=== PATIENT | male | born 1945 | race Caucasian/White ===

== ENCOUNTER 2016-04-11 07:05 | Day surgery (SDC) | payer OTHER ==
[2016-04-11 07:45] VITALS: BMI 27.5
[2016-04-11] MEDS ORDERED: LIDOCAINE HCL/PF 1% SDV 5ML VIAL ONE (07:58)
[2016-04-11] MEDS ORDERED: PROPOFOL 20 ML ONE ×4 (07:59)
[2016-04-11 08:54] VITALS: TEMP 98
[2016-04-11 10:03] VITALS: BP 112/56; PULSE 58
--- NOTE | 2016-04-12 10:35 | PATH ---
Surgical Pathology Report Patient Name: IGGY BERGERON [facility]. Rec. #: [id number] /Age/Gender: 1945 (Age: 70) / M Account: [id number] Location: U-ENDOSCOPY Taken: 04/11/2016 Received: 04/11/2016 Reported: 04/12/2016 Physicians: Anabel Cardoza M.D. Specimen(s) Received A: POLYP CECUM B: POLYPS RIGHT COLON C: POLYP DISTAL TRANSVERSE COLON Clinical History Surveillance adenoma, rectal bleeding, constipation Colon polyps, diverticulosis Final Diagnosis A. COLON, CECUM, BIOPSY: TUBULAR ADENOMA. B. COLON, RIGHT, BIOPSY: TUBULAR ADENOMA. C. COLON, DISTAL TRANSVERSE, BIOPSY: HYPERPLASTIC POLYP. Electronically Signed Remington Villa M.D. Gross Description A. Received in formalin, labeled "polyp cecum" is a [place], irregular portion of soft tissue measuring 0.5 cm. in greatest dimension. The specimen is submitted in toto in one cassette. B. Received in formalin, labeled "polyps right colon" is a [place], irregular portion of soft tissue measuring 0.6 cm. in greatest dimension. The specimen is submitted in toto in one cassette. C. Received in formalin, labeled "polyp distal transverse colon" are 3 [place], irregular portions of soft tissue ranging from 0.2-0.4 cm. in greatest dimension. The specimens are submitted in toto in one cassette. 04/11/2016 saudi04/11/2016
== END 2016-04-11 10:00 | disposition home or self-care (01) ==
LOC: JASU-ENDO 07:05
PROVIDERS: ATTEND Internal Medicine Gastroenterology
PROC: 0DBL8ZX Excision of Transverse Colon, Via Natural or Artificial Opening Endoscopic, Diagnostic (ICD-10-PCS; principal; 2016-04-11 08:00)
DX: Z86.010 Personal history of colon polyps (principal); D12.3 Benign neoplasm of transverse colon; K57.30 Diverticulosis of large intestine without perforation or abscess without bleeding; K64.8 Other hemorrhoids
CPT/HCPCS: 88305-TC

== ENCOUNTER 2016-09-04 00:15 | Emergency (ER) | payer OTHER ==
[2016-09-04] MEDS ORDERED: TAMSULOSIN HCL 0.4 MG CAP.ER.24H (FP) PO ONE (01:35)
--- NOTE | 2016-09-04 01:35 | PDOC ---
History of Present Illness - General Stated Complaint: URINARY PROBLEM Time Seen by Provider: 09/04/16 01:27 History Source: Patient Exam Limitations: No Limitations - History of Present Illness Initial Comments: 09/04/16 01:37 70-year-old male presents to the emergency department complaining of urinary retention 4 hours without fever, chills, nausea/vomiting, chest pain, shortness of breath, abdominal pains, extremity numbness or tingling sensation. Patient states he spoke to his urologist prior to arrival to the emergency department and was informed that he will get a Caba catheter and will be seen this week. Timing/Duration: 4-6 hours Severity: mild Associated Symptoms: reports: denies symptoms Past History - Past Medical History Allergies/Adverse Reactions: Allergies Allergy/AdvReac Type Severity Reaction Status Date / Time No Known Drug Allergies Allergy Verified 09/04/16 02:40 Home Medications: Ambulatory Orders Amitriptyline HCl [Elavil -] 10 mg PO HS 01/23/12 Atenolol [Tenormin -] 150 mg PO HS 01/23/12 Isosorbide Mononitrate [Imdur] 120 mg PO DAILY 01/23/12 Ramipril [Altace] 10 mg PO DAILY 01/23/12 Ranolazine [Ranexa] 500 mg PO BID 01/23/12 Repaglinide [Prandin] 0.5 mg PO TID 01/23/12 Sitagliptin Phos/Metformin HCl [Janumet Xr 50-500 mg Tablet] 1 each PO DAILY 02/21 Gemfibrozil 600 mg PO BID 01/29/14 Simvastatin [Zocor -] 40 mg PO ACDIN 01/29/14 Multivit-Min/FA/Lycopen/Lutein [Centrum Silver Tablet] 1 each PO DAILY 04/11/16 [place]-3/Dha/Epa/Fish Oil [Fish Oil 1,000 mg Softgel] 1,000 mg PO DAILY 04/11/16 Empagliflozin [Jardiance] 10 mg PO DAILY 09/04/16 Tamsulosin HCl [Flomax] 0.4 mg PO DAILY #7 cap.er.24h 09/04/16 Ticagrelor [Brilinta] 90 mg PO BID 09/04/16 Anemia: No Asthma: No Cancer: No Cardiac Disorders: Yes ([id number], CABG X4 2006, STENTS IN ILEAC ARTERY) CVA: No COPD: No CHF: No Dementia: No Diabetes: Yes (NIDDM) GI Disorders: No Disorders: Yes (BPH) HTN: Yes Hypercholesterolemia: Yes Liver Disease: No Seizures: No Thyroid Disease: No - Surgical History Abdominal Surgery: No Appendectomy: No Cardiac Surgery: Yes (cabg) Cholecystectomy: No Neurologic Surgery: Yes (LAMINCTOMY 2003 RECENT BACK SURGERY C567 T1) Orthopedic Surgery: No - Psycho/Social/Smoking Cessation Hx Anxiety: Yes Suicidal Ideation: No Smoking History: Former smoker Have you smoked in the past 12 months: No If you are a former smoker, when did you quit?: 1976 Hx Alcohol Use: Yes (SOCIAL) Drug/Substance Use Hx: No Substance Use Type: None Hx Substance Use Treatment: No Review of Systems - Review of Systems Able to Perform ROS?: Yes Comments:: 09/04/16 01:34 CONSTITUTIONAL: Absent: fever, chills, diaphoresis, generalized weakness, malaise, loss of appetite HEENT: Absent: rhinorrhea, nasal congestion, throat pain, throat swelling, difficulty swallowing, mouth swelling, ear pain, eye pain, visual Changes CARDIOVASCULAR: Absent: chest pain, loss of consciousness, palpitations, irregular heart rate, peripheral edema RESPIRATORY: Absent: cough, shortness of breath, dyspnea with exertion, orthopnea, wheezing, stridor, hemoptysis GASTROINTESTINAL: Absent: abdominal pain, abdominal distension, nausea, vomiting, diarrhea, constipation, melena, hematochezia GENITOURINARY: +retention Absent: flank pain, genital pain MUSCULOSKELETAL: Absent: myalgia, arthralgia, joint swelling SKIN: Absent: rash, itching, pallor HEMATOLOGIC/IMMUNOLOGIC: Absent: easy bleeding, easy bruising, lymphadenopathy, frequent infections ENDOCRINE: Absent: unexplained weight gain, unexplained weight loss, heat intolerance, cold intolerance NEUROLOGIC: Absent: headache, focal weakness or paresthesias, dizziness, unsteady gait, seizure, mental status changes, bladder or bowel incontinence PSYCHIATRIC: Absent: anxiety, depression, suicidal or homicidal ideation, hallucinations. Is the patient limited Latvian proficient: No *Physical Exam - Physical Exam Comments: 09/04/16 01:35 GENERAL: Well developed, well nourished. Awake and alert. No acute distress. HEENT: Normocephalic, atraumatic. PERRLA, EOMI. No conjunctival pallor. Sclera are non- icteric. Moist mucous membranes. Oropharynx is clear. NECK: Supple. Full ROM. No JVD. Carotid pulses 2+ and symmetric, without bruits. No thyromegaly. No lymphadenopathy. CARDIOVASCULAR: Regular rate and rhythm. No murmurs, rubs, or gallops. Distal pulses are 2+ and symmetric. PULMONARY: No evidence of respiratory distress. Lungs clear to auscultation bilaterally. No wheezing, rales or rhonchi. ABDOMINAL: Soft. Non-tender. Non-distended. No rebound or guarding. No organomegaly. Normoactive bowel sounds. MUSCULOSKELETAL Normal range of motion at all joints. No bony deformities or tenderness. No CVA tenderness. EXTREMITIES: No cyanosis. No clubbing. No edema. No calf tenderness. SKIN: Warm and dry. Normal capillary refill. No rashes. No jaundice. NEUROLOGICAL: Alert, awake, appropriate. Cranial nerves 2-12 intact. No deficits to light touch and temperature in face, upper extremities and lower extremities. No motor deficits in the in face, upper extremities and lower extremities. Normoreflexic in the upper and lower extremities. Normal speech. Toes are down- going bilaterally. Gait is normal without ataxia. PSYCHIATRIC: Cooperative. Good eye contact. Appropriate mood and affect. *DC/Admit/Observation/Transfer - Prescriptions Prescriptions: Tamsulosin HCl [Flomax] 0.4 mg PO DAILY #7 cap.er.24h - Referrals Referrals: Wayne Swain MD [Primary Care Provider] - Peter Cancino MD [Staff Physician] - - Patient Instructions Printed Discharge Instructions: DI for Urinary Retention in Men, How to Care for Your Caba Catheter -- Male Additional Instructions: Increase fluids Take your Flomax daily FOLLOW UP WITH THE UROLOGIST ON MONDAY Return to the ER for severe/persistent/worsening symptoms
[2016-09-04 02:40] VITALS: PULSE 65; TEMP 98.7; BMI 25.1
[2016-09-04 02:48] LABS: URINE BILIRUBIN NEGATIVE (NEGATIVE); URINE GLUCOSE (UA) 3+ (NEGATIVE); URINE KETONE NEGATIVE (NEGATIVE); URINE LEUK ESTERASE NEGATIVE (NEGATIVE); URINE NITRITE NEGATIVE (NEGATIVE); URINE UROBILINOGEN NEGATIVE E.U./dl (0.2-1.0)
[2016-09-04 02:50] LABS: URINE BLOOD 2+ (NEGATIVE); URINE PROTEIN 2+ (NEGATIVE)
[2016-09-04] MEDS ORDERED: TAMSULOSIN HCL 0.4 MG CAP.ER.24H (FP) ONE (02:50)
[2016-09-04 02:54] LABS: URINE APPEARANCE TURBID; URINE COLOR PINK
[2016-09-04 02:59] LABS: URINE BACTERIA FEW /hpf (NONE SEEN); URINE HYALINE CAST 1 /lpf; URINE MUCUS RARE; URINE RBC 36 /hpf (0-3); URINE WBC 4 /hpf (3-5)
[2016-09-04 03:13] VITALS: BP 175/75
== END 2016-09-04 03:13 | disposition home or self-care (01) ==
LOC: JER 00:15
PROC: 0T9B70Z Drainage of Bladder with Drainage Device, Via Natural or Artificial Opening (ICD-10-PCS; principal; 2016-09-04)
DX: R33.8 Other retention of urine (principal); E11.9 Type 2 diabetes mellitus without complications; Z79.84 Long term (current) use of oral hypoglycemic drugs; E78.00 Pure hypercholesterolemia, unspecified; N40.0 Benign prostatic hyperplasia without lower urinary tract symptoms; Z95.1 Presence of aortocoronary bypass graft
CPT/HCPCS: 81003; 81015; 87086; 99282-25

== ENCOUNTER 2016-09-04 10:09 | Emergency (ER) | payer OTHER ==
[2016-09-04 10:14] VITALS: BMI 26.5
--- NOTE | 2016-09-04 10:49 | PDOC ---
History of Present Illness - General Chief Complaint: Urinary Catheter Problem Stated Complaint: PAIN, REVISIT Time Seen by Provider: 09/04/16 10:38 History Source: Patient - History of Present Illness Timing/Duration: reports: getting worse Abdominal Pain Onset Location: reports: suprapubic Past History - Past Medical History Allergies/Adverse Reactions: Allergies Allergy/AdvReac Type Severity Reaction Status Date / Time No Known Drug Allergies Allergy Verified 09/04/16 10:11 Home Medications: Ambulatory Orders Amitriptyline HCl [Elavil -] 10 mg PO HS 01/23/12 Atenolol [Tenormin -] 150 mg PO HS 01/23/12 Isosorbide Mononitrate [Imdur] 120 mg PO DAILY 01/23/12 Ramipril [Altace] 10 mg PO DAILY 01/23/12 Ranolazine [Ranexa] 500 mg PO BID 01/23/12 Repaglinide [Prandin] 0.5 mg PO TID 01/23/12 Sitagliptin Phos/Metformin HCl [Janumet Xr 50-500 mg Tablet] 1 each PO DAILY 02/21 Gemfibrozil 600 mg PO BID 01/29/14 Simvastatin [Zocor -] 40 mg PO ACDIN 01/29/14 Multivit-Min/FA/Lycopen/Lutein [Centrum Silver Tablet] 1 each PO DAILY 04/11/16 [place]-3/Dha/Epa/Fish Oil [Fish Oil 1,000 mg Softgel] 1,000 mg PO DAILY 04/11/16 Empagliflozin [Jardiance] 10 mg PO DAILY 09/04/16 Tamsulosin HCl [Flomax] 0.4 mg PO DAILY #7 cap.er.24h 09/04/16 Ticagrelor [Brilinta] 90 mg PO BID 09/04/16 Anemia: No Asthma: No Cancer: No Cardiac Disorders: Yes ([id number], CABG X4 2006, STENTS IN ILEAC ARTERY) CVA: No COPD: No CHF: No Dementia: No Diabetes: Yes (NIDDM) GI Disorders: No Disorders: Yes (BPH) HTN: Yes Hypercholesterolemia: Yes Liver Disease: No Seizures: No Thyroid Disease: No - Surgical History Abdominal Surgery: No Appendectomy: No Cardiac Surgery: Yes (cabg) Cholecystectomy: No Neurologic Surgery: Yes (LAMINCTOMY 2003 RECENT BACK SURGERY C567 T1) Orthopedic Surgery: No - Psycho/Social/Smoking Cessation Hx Anxiety: Yes Suicidal Ideation: No Smoking History: Never smoked Have you smoked in the past 12 months: No If you are a former smoker, when did you quit?: 1975 Information on smoking cessation initiated: No Hx Alcohol Use: No Drug/Substance Use Hx: No Substance Use Type: None Hx Substance Use Treatment: No Review of Systems - Review of Systems Constitutional: No: Chills, Fever ABD/GI: No: Nausea, Vomiting : Yes: Dysuria. No: Flank Pain, Hematuria, Testicular Swelling, Testicular Pain *Physical Exam - Vital Signs Last Vital Signs Temp Pulse Resp BP Pulse Ox 98.0 F 77 18 144/64 100 09/04/16 10:12 09/04/16 10:12 09/04/16 10:12 09/04/16 10:12 09/04/16 10:12 - Physical Exam General Appearance: Yes: Appropriately Dressed. No: Apparent Distress HEENT: positive: Normal Voice Neck: positive: Supple Respiratory/Chest: negative: Respiratory Distress Gastrointestinal/Abdominal: positive: Tender (to suprapubic area w/ ?distention) , Soft Integumentary: positive: Dry, Warm Neurologic: positive: Fully Oriented, Alert, Normal Mood/Affect Medical Decision Making - Medical Decision Making 09/04/16 10:44 70 yo M, h/o CAD, on brilinta, BPH s/p surgery >2 years ago as per pt, not currently on flomax, seen in ED this a.m. for urinary retention and sent home with Lott with leg bag and restarted on Flomax, now returns w/ recurrent retention. States since emptying lott bag over 3 hours ago, has not been able to urinate and states when he feels the need to urinate, has burning pain to suprapubic area and penis. Denies hematuria, nausea, vomiting, fever or chills. see exam Recurrent retention H/o BPH, s/p lott placement in ED this am w/ no nit/le on ua Stable in ED -will attempt to flush lott and reassess 09/04/16 12:26 Lott readjusted with lido-jet for comfort w/ 500CC of UO afterwards. Pt reports feeling significantly better and appears more comfortable at this time. Has appt tomorrow. Reasons to return d/w family 09/04/16 12:30 09/04/16 12:30 *DC/Admit/Observation/Transfer Diagnosis at time of Disposition: Lott catheter problem Qualifiers: Encounter type: initial encounter Qualified Code(s): T83.9XXA - Unspecified complication of genitourinary prosthetic device, implant and graft, initial encounter - Discharge Dispostion Disposition: HOME Condition at time of disposition: Improved - Referrals Referrals: Wayne Swain MD [Primary Care Provider] - - Patient Instructions Additional Instructions: Return to ER for worsening of symptoms. Otherwise follow-up with your urologist tomorrow as already scheduled
[2016-09-04] MEDS ORDERED: LIDOCAINE HCL 2% JELLY (5 ML/TUBE) ONE (12:01)
[2016-09-04] MEDS ORDERED: LIDOCAINE HCL 2% JELLY 10 ML CARTRIDGE ONE (12:03)
[2016-09-04] MEDS ORDERED: LIDOCAINE HCL 2% JELLY 10 ML CARTRIDGE PR ONE (12:26)
[2016-09-04 12:49] VITALS: BP 111/60; PULSE 64; TEMP 97.9
== END 2016-09-04 12:49 | disposition home or self-care (01) ==
LOC: JER 10:09
DX: T83.098A Other mechanical complication of other urinary catheter, initial encounter (principal); N40.0 Benign prostatic hyperplasia without lower urinary tract symptoms; I10 Essential (primary) hypertension; E11.9 Type 2 diabetes mellitus without complications; Z79.84 Long term (current) use of oral hypoglycemic drugs; E78.00 Pure hypercholesterolemia, unspecified; Z95.1 Presence of aortocoronary bypass graft
CPT/HCPCS: 99282-25

== ENCOUNTER 2016-09-04 15:59 | Observation (INO) | payer OTHER ==
--- NOTE | 2016-09-04 16:33 | PDOC ---
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 Patient was in this ED both at 01: 00 AM and 10:40 AM for urinary retention. He also states that his urine was dark appearing last night and this morning, his urine has an appearance of pink lemonade. Patient was inserted a Lott at 01:00 AM. Upon his return at 10:40, the Lott was readjusted and flushed with Lido-jet for comfort. Patient returns for recurrent symptoms and onset of associated suprapubic abdominal discomfort. He denies chest pain, cough, shortness of breath, headache He denies nausea, vomiting, diarrhea He denies changes in bowel habits, flank pain, testicular pain or penile discharge. Allergies: No Known Drug Allergies Past Surgical History: CABGx4. Laminectomy. Social History: Former smoker. No EtOH and recreational drug use. Primary Care Physician: Dr. Wayne Swain Urologist: Dr. Peter Cancino <Leidy Davis - Last Filed: 09/04/16 19:05> <Gris Quintero - Last Filed: 09/07/16 14:09> - General Chief Complaint: Urinary Problem Stated Complaint: URINARY PROBLEM Time Seen by Provider: 09/04/16 16:33 Past History <Leidy Davis - Last Filed: 09/04/16 19:05> - Past Medical History Anemia: No Asthma: No Cancer: No Cardiac Disorders: Yes ([id number], CABG X4 2005, STENTS IN ILEAC ARTERY) CVA: No COPD: No CHF: No Dementia: No Diabetes: Yes (NIDDM) GI Disorders: No Disorders: Yes (BPH) HTN: Yes Hypercholesterolemia: Yes Liver Disease: No Seizures: No Thyroid Disease: No - Surgical History Abdominal Surgery: No Appendectomy: No Cardiac Surgery: Yes (cabg) Cholecystectomy: No Neurologic Surgery: Yes (LAMINCTOMY 2002 RECENT BACK SURGERY C567 T1) Orthopedic Surgery: No - Psycho/Social/Smoking Cessation Hx Anxiety: Yes Suicidal Ideation: No Smoking History: Never smoked Have you smoked in the past 12 months: No If you are a former smoker, when did you quit?: 1975 Information on smoking cessation initiated: No Hx Alcohol Use: No Drug/Substance Use Hx: No Substance Use Type: None Hx Substance Use Treatment: No <LeonGris drake - Last Filed: 09/07/16 14:09> - Past Medical History Allergies/Adverse Reactions: Allergies Allergy/AdvReac Type Severity Reaction Status Date / Time No Known Drug Allergies Allergy Verified 09/04/16 16:09 Home Medications: Ambulatory Orders Amitriptyline HCl [Elavil -] 10 mg PO HS 01/23/12 Atenolol [Tenormin -] 150 mg PO HS 01/23/12 Isosorbide Mononitrate [Imdur] 120 mg PO DAILY 01/23/12 Ramipril [Altace] 10 mg PO DAILY 01/23/12 Ranolazine [Ranexa] 500 mg PO BID 01/23/12 Repaglinide [Prandin] 0.5 mg PO TID 01/23/12 Sitagliptin Phos/Metformin HCl [Janumet Xr 50-500 mg Tablet] 1 each PO DAILY 02/21 Gemfibrozil 600 mg PO BID 01/29/14 Simvastatin [Zocor -] 40 mg PO ACDIN 01/29/14 Multivit-Min/FA/Lycopen/Lutein [Centrum Silver Tablet] 1 each PO DAILY 04/11/16 [place]-3/Dha/Epa/Fish Oil [Fish Oil 1,000 mg Softgel] 1,000 mg PO DAILY 04/11/16 Empagliflozin [Jardiance] 10 mg PO DAILY 09/04/16 Tamsulosin HCl [Flomax] 0.4 mg PO DAILY #7 cap.er.24h 09/04/16 Ticagrelor [Brilinta -] 90 mg PO BID 09/04/16 Review of Systems - Review of Systems Able to Perform ROS?: Yes Comments:: 09/04/16 16:47 GENERAL/CONSTITUTIONAL: No fever or chills. No weakness. HEAD, EYES, EARS, NOSE AND THROAT: No change in vision. No ear pain or discharge. No sore throat. CARDIOVASCULAR: No chest pain or shortness of breath. RESPIRATORY: No cough, wheezing, or hemoptysis. GASTROINTESTINAL: Yes: Abdominal Pain. No nausea, vomiting, diarrhea or constipation. GENITOURINARY: Yes: Urinary retention. Dysuria. Hematuria. No frequency. MUSCULOSKELETAL: No joint or muscle swelling or pain. No neck or back pain. SKIN: No rash NEUROLOGIC: No headache, vertigo, loss of consciousness, or change in strength/ sensation. ENDOCRINE: No increased thirst. No abnormal weight change. HEMATOLOGIC/LYMPHATIC: No anemia, easy bleeding, or history of blood clots. ALLERGIC/IMMUNOLOGIC: No hives or skin allergy. <Leidy Davis - Last Filed: 09/04/16 19:05> *Physical Exam - Vital Signs Last Vital Signs Temp Pulse Resp BP Pulse Ox 98.1 F 74 18 129/84 97 09/04/16 16:06 09/04/16 16:06 09/04/16 16:06 09/04/16 16:06 09/04/16 16:06 - Physical Exam Comments: 09/04/16 16:48 GENERAL: Awake, alert, and fully oriented, in no acute distress HEAD: No signs of trauma EYES: PERRLA, EOMI, sclera anicteric, conjunctiva clear ENT: Auricles normal inspection, hearing grossly normal, nares patent, oropharynx clear without exudates. Moist mucosa NECK: Normal ROM, supple, no lymphadenopathy, JVD, or masses LUNGS: Breath sounds equal, clear to auscultation bilaterally. No wheezes, and no crackles HEART: Regular rate and rhythm, normal S1 and S2, no murmurs, rubs or gallops ABDOMEN: Mild abdominal distention. Soft, nontender, normoactive bowel sounds. No guarding, no rebound. No masses : Uncircumsized penis. Lott in placed. Scant amount of yellow urine in the bag EXTREMITIES: Normal range of motion, no edema. No clubbing or cyanosis. No cords, erythema, or tenderness NEUROLOGICAL: Cranial nerves II through XII grossly intact. Normal speech <Leidy Davis - Last Filed: 09/04/16 19:05> - Vital Signs Last Vital Signs Temp Pulse Resp BP Pulse Ox 98.1 F 74 18 129/84 97 09/04/16 16:06 09/04/16 16:06 09/04/16 16:06 09/04/16 16:06 09/04/16 16:06 <Gris Quintero - Last Filed: 09/07/16 14:09> ED Treatment Course - LABORATORY CBC & Chemistry Diagram: 09/06/16 08:00 09/06/16 08:00 <Gris Quintero - Last Filed: 09/07/16 14:09> Medical Decision Making - Medical Decision Making 09/04/16 19:[address] Peter Cancino <Leidy Davis - Last Filed: 09/04/16 19:05> - Medical Decision Making 09/04/16 18:00 Pt presents to the ED complaining of urinary retention that began immediately after discharge from [facility] ED with indwelling lott catheter placed for urinary retention. Came to the ED this morning for same complaint--lott was flushed and found to be draining and was discharged home. Lott replaced in the ED today. Large clot found when lott was replaced. 500 cc drainage after lott replaced. Now has hematuria. Will flush lott and discharge home if hematuria clears. <Gris Quintero - Last Filed: 09/07/16 14:09> *DC/Admit/Observation/Transfer - Attestations Scribe Attestion: 09/04/16 16:48 Documentation prepared by Leidy Davis, acting as medical writer for Gris Quintero MD. <Leidy Davis - Last Filed: 09/04/16 19:05> - Discharge Dispostion Admit: Yes <Gris Quintero - Last Filed: 09/07/16 14:09> Diagnosis at time of Disposition: Urinary Retention, Hematuria - Discharge Dispostion Condition at time of disposition: Stable
[2016-09-04 20:32] LABS: BASOPHIL 0.2 % (0-2.0); MEAN PLT VOLUME 8.2 fl (7.5-11.1); PLATELET COUNT 197 K/MM3 (134-434); RDW 14.1 % (11.9-15.9)
--- NOTE | 2016-09-04 20:47 | PDOC ---
*Physical Exam - Vital Signs Last Vital Signs Temp Pulse Resp BP Pulse Ox 98.3 F 64 17 164/72 95 09/04/16 19:30 09/04/16 19:30 09/04/16 19:30 09/04/16 19:30 09/04/16 19:30 Heart Score/ECG Review #1 ECG reviewed & interpreted by me at: 20:45 09/04/16 20:45 Sinus rhythm Rat eof 67bpm Intervals abn: pr -218ms, QRS: 88ms, QTc:422ms No ST elevations or depressions T wave inversion III, aVF? ED Treatment Course - LABORATORY CBC & Chemistry Diagram: 09/04/16 20:20 09/04/16 20:20 - RADIOLOGY Radiology Studies Ordered: Category Date Time Status CHEST - PA [RAD] Stat Radiology 09/04/16 19:37 Ordered Medical Decision Making - Medical Decision Making 09/04/16 20:43 I received this patient on sign out He has had 3 visits to the ER for hematuria and cathether obstruction Caba replaced Dr singh consulted He states pt should stay if he can not care for this cathether Offered to teach patient how to flush cathether himself He is not willing to do so Will place on observation Labs ordered EKG ordered 09/04/16 21:12 Laboratory Tests 09/04/16 09/04/16 09/04/16 20:20 20:20 20:20 WBC 10.0 Hgb 14.1 Hct 42.7 Plt Count 197 Neutrophils % 72.0 Lymphocytes % 16.4 D INR 1.09 Sodium 135 L Potassium 4.0 Chloride 99 Carbon Dioxide 27 BUN 20 H Creatinine 0.9 Random Glucose 172 H *DC/Admit/Observation/Transfer Diagnosis at time of Disposition: Urinary Retention, Hematuria - Discharge Dispostion Condition at time of disposition: Stable Admit: Yes
[2016-09-04 20:52] LABS: INR 1.09 (0.82-1.09)
[2016-09-04 21:00] LABS: ANION GAP 9 (8-16); CALCIUM 8.8 mg/dL (8.5-10.1); CO2 27 mmol/L (21-32); CREATININE 0.9 mg/dL (0.7-1.3); GLUCOSE,RANDOM 172 mg/dL (74-106)
--- NOTE | 2016-09-04 22:34 | HP ---
<Preston Iyer - Last Filed: 09/05/16 00:27> CHIEF COMPLAINT: Urinary Retention PCP: Dr. Swain HISTORY OF PRESENT ILLNESS: The patient is a 70-year-old man, accompanied by his , with a significant past medical history of hypertension, hypercholesterolemia, coronary artery disease, myocardial infarction status post CABG x4 and stents, non-insulin dependent diabetes mellitus and benign prostate hyperplasia who presents to the emergency department with urinary retention. Notes that urine was dark in color since yesterday. Patient was in this ED both at 01:00 AM and 10:40 AM for urinary retention. Patient was inserted a Lott at 01:00 AM. Upon his return at 10:40, the Lott was readjusted and flushed with Lido-jet for comfort. Patient returns for recurrent symptoms and onset of associated suprapubic abdominal discomfort. Patients urologist Dr. Cancino was consulted and suggested patient stays in hospital for catheter care education. Recent Travel: None PAST MEDICAL HISTORY: Hypertension, hypercholesterolemia, coronary artery disease, myocardial infarction status post CABG x4 and stents, non-insulin dependent diabetes mellitus and benign prostate hyperplasia PAST SURGICAL HISTORY: Cardiac stents x 4 Social History: Smoking: Former Alcohol: Denied Drugs: Denied Family History: No significant history reported. Allergies No Known Drug Allergies Allergy (Verified 09/04/16 16:09) HOME MEDICATIONS: Home Medications Medication Instructions Recorded Amitriptyline HCl [Elavil -] 10 mg PO HS 01/23/12 Atenolol [Tenormin -] 150 mg PO HS 01/23/12 Isosorbide Mononitrate [Imdur] 120 mg PO DAILY 01/23/12 Ramipril [Altace] 10 mg PO DAILY 01/23/12 Ranolazine [Ranexa] 500 mg PO BID 01/23/12 Repaglinide [Prandin] 0.5 mg PO TID 01/23/12 Sitagliptin Phos/Metformin HCl 1 each PO DAILY 01/23/12 [Janumet Xr 50-500 mg Tablet] Gemfibrozil 600 mg PO BID 01/29/14 Simvastatin [Zocor -] 40 mg PO ACDIN 01/29/14 Multivit-Min/FA/Lycopen/Lutein 1 each PO DAILY 04/11/16 [Centrum Silver Tablet] [place]-3/Dha/Epa/Fish Oil [Fish Oil 1,000 mg PO DAILY 04/11/16 1,000 mg Softgel] Empagliflozin [Jardiance] 10 mg PO DAILY 09/04/16 Tamsulosin HCl [Flomax] 0.4 mg PO DAILY #7 cap.er.24h 09/04/16 Ticagrelor [Brilinta] 90 mg PO BID 09/04/16 REVIEW OF SYSTEMS CONSTITUTIONAL: Absent: fever, chills, diaphoresis, generalized weakness, malaise, loss of appetite, weight change HEENT: Absent: rhinorrhea, nasal congestion, throat pain, throat swelling, difficulty swallowing, mouth swelling, ear pain, eye pain, visual changes CARDIOVASCULAR: Absent: chest pain, syncope, palpitations, irregular heart rate, lightheadedness , peripheral edema RESPIRATORY: Absent: cough, shortness of breath, dyspnea with exertion, orthopnea, wheezing, stridor, hemoptysis GASTROINTESTINAL: Absent: abdominal pain, abdominal distension, nausea, vomiting, diarrhea, constipation, melena, hematochezia GENITOURINARY: Present: Urinary retention Absent: dysuria, frequency, urgency, hesitancy, hematuria, flank pain, genital pain MUSCULOSKELETAL: Absent: myalgia, arthralgia, joint swelling, back pain, neck pain SKIN: Absent: rash, itching, pallor HEMATOLOGIC/IMMUNOLOGIC: Absent: easy bleeding, easy bruising, lymphadenopathy, frequent infections ENDOCRINE: Absent: unexplained weight gain, unexplained weight loss, heat intolerance, cold intolerance NEUROLOGIC: Absent: headache, focal weakness or paresthesias, dizziness, unsteady gait, seizure, mental status changes, bladder or bowel incontinence PSYCHIATRIC: Absent: anxiety, depression, suicidal or homicidal ideation, hallucinations. PHYSICAL EXAMINATION GENERAL: Awake, alert, and fully oriented, in no acute distress. HEAD: Normal with no signs of trauma. EYES: Pupils equal, round and reactive to light, extraocular movements intact, sclera anicteric, conjunctiva clear. No lid lag. EARS, NOSE, THROAT: Ears normal, nares patent, oropharynx clear without exudates. Moist mucous membranes. NECK: Normal range of motion, supple without lymphadenopathy, JVD, or masses. LUNGS: Breath sounds equal, clear to auscultation bilaterally. No wheezes, and no crackles. No accessory muscle use. HEART: Regular rate and rhythm, normal S1 and S2 without murmur, rub or gallop. ABDOMEN: (+) Soft, mild suprapubic tenderness on palpation, not distended, normoactive bowel sounds, no guarding, no rebound, no masses. No hepatomegaly or splenomegaly. MUSCULOSKELETAL: Normal range of motion at all joints. No bony deformities or tenderness. No CVA tenderness. UPPER EXTREMITIES: 2+ pulses, warm, well-perfused. No cyanosis. No clubbing. No peripheral edema. LOWER EXTREMITIES: 2+ pulses, warm, well-perfused. No calf tenderness. No peripheral edema. NEUROLOGICAL: Cranial nerves II-XII intact. Normal speech. Normal gait. PSYCHIATRIC: Cooperative. Good eye contact. Appropriate mood and affect. SKIN: Warm, dry, normal turgor, no rashes or lesions noted, normal capillary refill. ASSESSMENT/PLAN: 70 year old male with past medical history of HTN, HLD, CAD, [place] sp CABG x 4, diabetes, and bmp who presents with clot in lott with hematuria. Being admitted for observation. 1. Hematuria - completely resolved - Trend H&H 2. Lott catheter obstruction Urology consulted for catheter flushing 3. HTN Continue home medications 4. HLD Continue home medications 5. CAD Continue home medications Diabetes - Finger sticks - Sliding scale - Continue home medications DVT PPX - low risk - SCDs Place in observation. Documentation prepared by Preston Iyer, acting as rn medical inpatient services for Dr. Raheem Solis MD. <Raheem Solis - Last Filed: 09/05/16 06:57> Addendum Hyponatremia - Mild - Trend Visit type - Emergency Visit Emergency Visit: Yes ED Registration Date: 09/04/16 Care time: The patient presented to the Emergency Department on the above date and was hospitalized for further evaluation of their emergent condition. - New Patient This patient is new to me today: Yes Date on this admission: 09/05/16 - Critical Care Critical Care patient: No
[2016-09-05 02:47] VITALS: BMI 25.7
[2016-09-05] MEDS: INSULIN SLIDING SCALE (NOVOLOG) 1 VIAL SQ SCH ×4 (06:18→21:40)
[2016-09-05] MEDS: REPAGLINIDE 0.5 MG TABLET (FP) PO SCH ×2 (06:20→11:56)
[2016-09-05] MEDS ORDERED: sitaGLIPtin PHOSPHATE 50 MG TABLET PO SCH (07:00)
[2016-09-05 08:16] LABS: MCH 30.9 pg (25.7-33.7); MCHC 33.9 g/dl (32.0-35.9); MEAN CELL VOLUME 91.2 fl (80-96); PLATELET COUNT 178 K/MM3 (134-434); RDW 13.8 % (11.9-15.9); WHITE BLOOD COUNT 9.7 K/mm3 (4.0-10.0)
[2016-09-05 08:17] LABS: ANION GAP 9 (8-16); CALCIUM 8.6 mg/dL (8.5-10.1); CO2 28 mmol/L (21-32); CREATININE 0.9 mg/dL (0.7-1.3); GLUCOSE,RANDOM 129 mg/dL (74-106)
[2016-09-05 08:26] LABS: INR 1.07 (0.82-1.09); PROTHROMBIN TIME (PATIENT) 11.8 SEC (9.98-11.88)
[2016-09-05] MEDS ORDERED: TAMSULOSIN HCL 0.4 MG CAP.ER.24H (FP) PO SCH (10:00)
[2016-09-05] MEDS ORDERED: METFORMIN HCL PO SCH (10:00)
[2016-09-05] MEDS ORDERED: [UNRECOGNIZED DRUG - OTHER] PO SCH (10:00)
[2016-09-05] MEDS ORDERED: PATIENT'S OWN MEDICATION (NON-FORMULARY) (Empagliflozin [Jardiance] 10 MG) PO SCH (10:00)
[2016-09-05] MEDS ORDERED: PATIENT'S OWN MEDICATION (NON-FORMULARY) (Omega-3/Dha/Epa/Fish Oil [Fish Oil 1,000 Mg Soft PO SCH (10:00)
[2016-09-05] MEDS ORDERED: SITAGLIPTIN PHOS PO SCH (10:00)
[2016-09-05] MEDS ORDERED: GEMFIBROZIL 600 MG TABLET (FP) PO SCH (10:00)
[2016-09-05] MEDS ORDERED: PT OWN MED DRAWER 7, Y5N ONE ×2 (10:07→21:33)
[2016-09-05] MEDS: TAMSULOSIN HCL 0.4 MG CAP.ER.24H (FP) PO SCH (10:49)
[2016-09-05] MEDS: RAMIPRIL 5 MG CAPSULE (FP) PO SCH (10:49)
[2016-09-05] MEDS: ISOSORBIDE MONONITRATE 60 MG TAB.SR.24H (FP) PO SCH (10:50)
[2016-09-05] MEDS: TICAGRELOR 90 MG TABLET PO SCH ×2 (10:50→21:39)
[2016-09-05] MEDS: RANOLAZINE E.R. 500 MG TABLET (FP) PO SCH ×2 (10:51→21:40)
[2016-09-05] MEDS: MULTIVITAMINS THER W-MINERALS COMBO TABLET (FP) PO SCH (10:51)
--- NOTE | 2016-09-05 12:17 | CON.CARD ---
Consult Consult Specialty:: Cardiology Referred by:: Hospitalist Medicine Reason for Consultation:: CAD s/p [place], PCI, CABG - History of Present Illness Chief Complaint: Hematuria, urinary retention History of Present Illness: The patient is a 70-year-old man, with a significant past medical history of hypertension, hypercholesterolemia, coronary artery disease, myocardial infarction status post CABG x4 and stents, non-insulin dependent diabetes mellitus, PAD s/p bilateral iliac stenting, nonobstructive carotid artery disease and benign prostate hyperplasia s/p green laser intervention. He presented to the emergency department with urinary retention, hematuria, bladder spasms requiring lott drainage. He remains asymptomatic from CV standpoint and denies chest pain, dyspnea, near or true syncope, palpitations, orthopnea, PND or LE edema. Recent Travel: None PAST MEDICAL HISTORY: Hypertension, hypercholesterolemia, coronary artery disease, myocardial infarction status post CABG x4 and stents, non-insulin dependent diabetes mellitus and benign prostate hyperplasia PAST SURGICAL HISTORY: Cardiac stents x 4 Social History: Smoking: Former Alcohol: Denied Drugs: Denied Family History: No significant history reported. Allergies No Known Drug Allergies Allergy (Verified 09/04/16 16:09) - History Source History Provided By: Patient Limitations to Obtaining History: No Limitations - Past Medical History Cardio/Vascular: Yes: CAD, HTN, Hyperlipdemia, [place] (CABG Angina), Other (PAD) Endocrine: Yes: Diabetes Mellitus, Other (Hyperlipidemia) - Past Surgical History Past Surgical History: Yes: CABG (Bilateral Iliac stents PCI), Stent - Alcohol/Substance Use Hx Alcohol Use: No - Smoking History Smoking history: Never smoked Have you smoked in the past 12 months: No If you are a former smoker, when did you quit?: 1975 Home Medications - Allergies Allergies/Adverse Reactions: Allergies Allergy/AdvReac Type Severity Reaction Status Date / Time No Known Drug Allergies Allergy Verified 09/04/16 16:09 - Home Medications Home Medications: Ambulatory Orders Amitriptyline HCl [Elavil -] 10 mg PO HS 01/23/12 Atenolol [Tenormin -] 150 mg PO HS 01/23/12 Isosorbide Mononitrate [Imdur] 120 mg PO DAILY 01/23/12 Ramipril [Altace] 10 mg PO DAILY 01/23/12 Ranolazine [Ranexa] 500 mg PO BID 01/23/12 Repaglinide [Prandin] 0.5 mg PO TID 01/23/12 Sitagliptin Phos/Metformin HCl [Janumet Xr 50-500 mg Tablet] 1 each PO DAILY 02/21 Gemfibrozil 600 mg PO BID 01/29/14 Simvastatin [Zocor -] 40 mg PO ACDIN 01/29/14 Multivit-Min/FA/Lycopen/Lutein [Centrum Silver Tablet] 1 each PO DAILY 04/11/16 [place]-3/Dha/Epa/Fish Oil [Fish Oil 1,000 mg Softgel] 1,000 mg PO DAILY 04/11/16 Empagliflozin [Jardiance] 10 mg PO DAILY 09/04/16 Tamsulosin HCl [Flomax] 0.4 mg PO DAILY #7 cap.er.24h 09/04/16 Ticagrelor [Brilinta] 90 mg PO BID 09/04/16 Review of Systems - Review of Systems Genitourinary: reports: Hematuria, Pain - Risk Factors Known Risk Factors: Yes: Diabetes Mellitus, Hypercholesterolemia, Hypertension, Prior [place] /Emb Stroke Vital Signs: Vital Signs Temperature 98.7 F 09/05/16 09:00 Pulse Rate 75 09/05/16 09:00 Respiratory Rate 18 09/05/16 09:00 Blood Pressure 119/80 09/05/16 09:00 O2 Sat by Pulse Oximetry (%) 96 09/05/16 06:31 Constitutional: Yes: No Distress, Calm Neck: Yes: Supple Respiratory: Yes: Regular, CTA Bilaterally Gastrointestinal: Yes: Normal Bowel Sounds, Soft, Abdomen, Obese Renal/: Yes: Lott Present Cardiovascular: Yes: Regular Rate and Rhythm JVD: No Carotid Bruit: No Heart Sounds: Yes: S1, S2 Murmur: Yes: Systolic Murmur, Grade 1 Edema: No - Other Data Labs, Other Data: CBC, BMP 09/05/16 06:55 09/05/16 06:55 INR, PTT INR 1.07 (0.82-1.09) 09/05/16 06:55 NSR @ 64 1st deg AVB Prior Cardiac Procedures: CABG, PTCA with Stent Ejection Fraction %: LVEF > or = 40 % Imaging - Results Chest X-ray: Report Reviewed (NAD) Problem List - Problems (1) Hematuria Code(s): R31.9 - HEMATURIA, UNSPECIFIED (2) Urinary Retention Code(s): R33.9 - RETENTION OF URINE, UNSPECIFIED (3) CAD (coronary artery disease) Code(s): I25.10 - ATHSCL HEART DISEASE OF [place] CORONARY ARTERY W/O ANG PCTRS Qualifiers: Coronary Disease-Associated Artery/Lesion type: [place] artery [place] vs. transplanted heart: [place] heart Associated angina: without angina Qualified Code(s): I25.10 - Atherosclerotic heart disease of [place] coronary artery without angina pectoris (4) Diabetes mellitus Code(s): E11.9 - TYPE 2 DIABETES MELLITUS WITHOUT COMPLICATIONS Qualifiers: Diabetes mellitus type: type 2 Diabetes mellitus complication status: with circulatory complication Diabetes mellitus complication detail: with peripheral angiopathy without gangrene Diabetes mellitus group home insulin use: without group home use Qualified Code(s): E11.51 - Type 2 diabetes mellitus with diabetic peripheral angiopathy without gangrene; Z79.4 - MCFP (current) use of insulin (5) Lott catheter problem Code(s): T83.9XXA - UNSP COMPLICATION OF GENITOURINARY PROSTH DEV/GRFT, INIT Qualifiers: Encounter type: initial encounter Qualified Code(s): T83.9XXA - Unspecified complication of genitourinary prosthetic device, implant and graft, initial encounter (6) Hx of CABG Code(s): Z95.1 - PRESENCE OF AORTOCORONARY BYPASS GRAFT (7) Hyperlipidemia Code(s): E78.5 - HYPERLIPIDEMIA, UNSPECIFIED Qualifiers: Hyperlipidemia type: pure hypercholesterolemia Qualified Code(s): E78.00 - Pure hypercholesterolemia, unspecified; E78.0 - Pure hypercholesterolemia (8) Peripheral arterial disease Code(s): I73.9 - PERIPHERAL VASCULAR DISEASE, UNSPECIFIED (9) Hypertensive cardiomyopathy Code(s): I11.9 - HYPERTENSIVE HEART DISEASE WITHOUT HEART FAILURE I43 - CARDIOMYOPATHY IN DISEASES CLASSIFIED ELSEWHERE Qualifiers: Heart failure presence: without heart failure Qualified Code(s): I11.9 - Hypertensive heart disease without heart failure; I43 - Cardiomyopathy in diseases classified elsewhere Assessment/Plan 1. Hematuria, clot, urinary retention resolved post lott 2. CAD s/p [place], PCI(stent), CABG, angina pectoris 3. Type 2 DM 4. HTN/HCVD 5. PAD s/p bilateral iliac stent 6. Hyperlipidemia 7. Nonobstructive carotid artery disease P:1. Routine lott care, voiding trial once hematuria clears, eventual cystoscopy 2. Resume Brilinta at 60 bid now that hematuria has cleared, continue Atenolol 150 qd, Imdur 120 qd, Altace 10 qd, Ranexa 500 bid, Lopid 600 bid, Zocor 40 qhs , Fish oil 1000 qd, Jardiance 10 qd 3. Thank you for consultative opportunity
--- NOTE | 2016-09-05 12:54 | EKG ---
Test Reason : Blood Pressure : / mmHG Vent. Rate : 067 BPM Atrial Rate : 067 BPM P-R Int : 218 ms QRS Dur : 088 ms QT Int : 400 ms P-R-T Axes : 031 003 -25 degrees QTc Int : 422 ms SINUS RHYTHM WITH 1ST DEGREE A-V BLOCK CANNOT RULE OUT INFERIOR INFARCT WITH ST ABNORMALITIES ABNORMAL ECG WHEN COMPARED WITH ECG OF 09-APR-2014 14:05, Confirmed by FABBY NORRIS, PB ([id number]) on 09/05/2016 12:53:41 PM Referred By: Confirmed By:PB SEQUEIRA MD
--- NOTE | 2016-09-05 16:48 | PN ---
Physical Exam: SUBJECTIVE: Patient seen and examined at bedside. No overnight events. No new complaints. Hematuria improved. Denies CP, ALATORRE, palpitations, SOB, abd. pain, N/ V. OBJECTIVE: Vital Signs Period Temp Pulse Resp BP Sys/Berry Pulse Ox Last 24 Hr 98.1 F-98.7 F 63-76 17-18 110-159/55-80 94-96 GENERAL: AAOx3 , NAD HEAD:NC/AT EYES: PERRL, EOMI, sclera anicteric, conjunctiva clear. No ptosis. ENT: moist mucous membranes. NECK: Supple, No JVD LUNGS: CTAB, NO wheezing or rales. HEART: RRR, S1S2 ABDOMEN: Soft, NT, ND, BS(+) EXTREMITIES: 2+ pulses, warm, well-perfused, no edema. NEUROLOGICAL: Cranial nerves II through XII grossly intact. Normal speech, gait not observed. Laboratory Results - last 24 hr 09/05/16 09/05/16 09/05/16 02:22 05:57 06:55 WBC 9.7 RBC 4.72 Hgb 14.6 Hct 43.1 MCV 91.2 MCHC 33.9 RDW 13.8 Plt Count 178 MPV 8.0 INR PTT (Actin FS) Sodium Potassium Chloride Carbon Dioxide Anion Gap BUN Creatinine POC Glucometer 119 131 Random Glucose Calcium Blood Type Antibody Screen 09/05/16 09/05/16 09/05/16 06:55 06:55 06:55 WBC RBC Hgb Hct MCV MCHC RDW Plt Count MPV INR 1.07 PTT (Actin FS) 32.0 Sodium 138 Potassium 4.1 Chloride 101 Carbon Dioxide 28 Anion Gap 9 BUN 16 Creatinine 0.9 POC Glucometer Random Glucose 129 H D Calcium 8.6 Blood Type O POSITIVE Antibody Screen Negative 09/05/16 11:50 WBC RBC Hgb Hct MCV MCHC RDW Plt Count MPV INR PTT (Actin FS) Sodium Potassium Chloride Carbon Dioxide Anion Gap BUN Creatinine POC Glucometer 162 Random Glucose Calcium Blood Type Antibody Screen Active Medications Generic Name Dose Route Start Last Admin Trade Name Freq PRN Reason Stop Dose Admin Amitriptyline HCl 10 mg 09/05/16 22:00 Elavil - PO HS LEOBARDO Atenolol 150 mg 09/05/16 22:00 Tenormin - PO HS LEOBARDO Atorvastatin Calcium 20 mg 09/05/16 22:00 Lipitor - PO HS [facility] Insulin Aspart 1 vial 09/05/16 07:00 09/05/16 11:56 Novolog Vial Sliding Scale - SQ Not Given ACHS [facility] Protocol Isosorbide Mononitrate 120 mg 09/05/16 10:00 09/05/16 10:50 Imdur - PO 120 mg DAILY LEOBARDO Administration Multivitamins/Minerals 1 each 09/05/16 10:00 09/05/16 10:51 Theragran-M PO 1 each DAILY [facility] Administration Non-Formulary Medication 1,000 mg 09/05/16 10:00 [place]-3/Dha/Epa/Fish Oil [Fish Oil 1,000 Mg Softgel] PO DAILY [facility] Ramipril 10 mg 09/05/16 10:00 09/05/16 10:49 Altace - PO 10 mg DAILY LEOBARDO Administration Ranolazine 500 mg 09/05/16 10:00 09/05/16 10:51 Ranexa - PO 500 mg BID LEOBARDO Administration Tamsulosin HCl 0.4 mg 09/05/16 08:30 09/05/16 10:49 Flomax - PO 0.4 mg DAILY@0830 [facility] Administration Ticagrelor 90 mg 09/05/16 10:00 09/05/16 10:50 Brilinta - PO Not Given BID [facility] ASSESSMENT/PLAN: 70 year old male with past medical history of HTN, HLD, CAD, [place] sp CABG x 4, diabetes, and bmp who presents with clot in caba with hematuria. Problem List - Problems (1) Hematuria Assessment/Plan: * resolved * Will trend H/H in AM (2) [place] catheter problem Assessment/Plan: * Urology consult appreciated * Catheter flushed. * Voiding trial in AM (3) CAD (coronary artery disease) Assessment/Plan: * Continue * Atenolol (Tenormin -) 150 mg PO HS * Atorvastatin Calcium (Lipitor -) 20 mg PO HS * Isosorbide Mononitrate (Imdur -) 120 mg PO DAILY * Ramipril (Altace -) 10 mg PO DAILY * Ranolazine (Ranexa -) 500 mg PO BID * Ticagrelor (Brilinta -) 60 mg PO BID (4) Diabetes mellitus Assessment/Plan: * ADA diet * ISS ACHS * BGM ACHS (5) Hx of CABG Assessment/Plan: * refer to CAD for medications (6) Hyperlipidemia Assessment/Plan: * Zocor 40mg PO hS Visit type - Emergency Visit Emergency Visit: Yes ED Registration Date: 09/04/16 Care time: The patient presented to the Emergency Department on the above date and was hospitalized for further evaluation of their emergent condition. - New Patient This patient is new to me today: Yes Date on this admission: 09/05/16 - Critical Care Critical Care patient: No - Discharge Referral Referred to [facility] Med P.C.: No
--- NOTE | 2016-09-05 18:35 | CON.GU ---
Consult - History of Present Illness History of Present Illness: 70 yo male with BPH s/p greenlight laser 2.[address] Mendiola, now admitted with gross hematuria and urinary retention. No fever, chills - Past Medical History Cardio/Vascular: Yes: CAD, HTN, Hyperlipdemia, [place] (CABG Angina), Other (PAD) Endocrine: Yes: Diabetes Mellitus, Other (Hyperlipidemia) - Past Surgical History Past Surgical History: Yes: CABG (Bilateral Iliac stents PCI), Stent - Alcohol/Substance Use Hx Alcohol Use: No - Smoking History Smoking history: Never smoked Have you smoked in the past 12 months: No If you are a former smoker, when did you quit?: 1975 Home Medications - Allergies Allergies/Adverse Reactions: Allergies Allergy/AdvReac Type Severity Reaction Status Date / Time No Known Drug Allergies Allergy Verified 09/04/16 16:09 - Home Medications Home Medications: Ambulatory Orders Amitriptyline HCl [Elavil -] 10 mg PO HS 01/23/12 Atenolol [Tenormin -] 150 mg PO HS 01/23/12 Isosorbide Mononitrate [Imdur] 120 mg PO DAILY 01/23/12 Ramipril [Altace] 10 mg PO DAILY 01/23/12 Ranolazine [Ranexa] 500 mg PO BID 01/23/12 Repaglinide [Prandin] 0.5 mg PO TID 01/23/12 Sitagliptin Phos/Metformin HCl [Janumet Xr 50-500 mg Tablet] 1 each PO DAILY 02/21 Gemfibrozil 600 mg PO BID 01/29/14 Simvastatin [Zocor -] 40 mg PO ACDIN 01/29/14 Multivit-Min/FA/Lycopen/Lutein [Centrum Silver Tablet] 1 each PO DAILY 04/11/16 [place]-3/Dha/Epa/Fish Oil [Fish Oil 1,000 mg Softgel] 1,000 mg PO DAILY 04/11/16 Empagliflozin [Jardiance] 10 mg PO DAILY 09/04/16 Tamsulosin HCl [Flomax] 0.4 mg PO DAILY #7 cap.er.24h 09/04/16 Ticagrelor [Brilinta] 90 mg PO BID 09/04/16 Review of Systems - Review of Systems Genitourinary: reports: Hematuria Physical Exam- Vital Signs: Vital Signs Temperature 98.2 F 09/05/16 14:49 Pulse Rate 76 09/05/16 14:49 Respiratory Rate 18 09/05/16 14:49 Blood Pressure 110/55 09/05/16 14:49 O2 Sat by Pulse Oximetry (%) 94 L 09/05/16 14:00 Pelvis: Yes: Bladder Non Palpable (lott in place) Scrotum: Yes: WNL Penis: Yes: WNL Labs: CBC, BMP 09/05/16 06:55 09/05/16 06:55 Problem List - Problems (1) Hematuria Assessment/Plan: CT abd/pelv without and with IV contrast. d/c lott in am for voiding trial Code(s): R31.9 - HEMATURIA, UNSPECIFIED
--- NOTE | 2016-09-05 21:03 | PN ---
Teaching Attending Note Name of Resident: Marcell Shah ATTENDING PHYSICIAN STATEMENT I saw and evaluated the patient. I reviewed the resident's note and discussed the case with the resident. I agree with the resident's findings and plan as documented. SUBJECTIVE: Comfortable , no acute distress, no fever or chills. OBJECTIVE: Vital Signs Temperature 98.8 F 09/05/16 18:00 Pulse Rate 75 09/05/16 18:00 Respiratory Rate 18 09/05/16 18:00 Blood Pressure 126/65 09/05/16 18:00 O2 Sat by Pulse Oximetry (%) 94 L 09/05/16 14:00 CBCD WBC 9.7 K/mm3 (4.0-10.0) 09/05/16 06:55 RBC 4.72 M/mm3 (4.00-5.60) 09/05/16 06:55 Hgb 14.6 GM/dL (11.7-16.9) 09/05/16 06:55 Hct 43.1 % (35.4-49) 09/05/16 06:55 MCV 91.2 fl (80-96) 09/05/16 06:55 MCHC 33.9 g/dl (32.0-35.9) 09/05/16 06:55 RDW 13.8 % (11.9-15.9) 09/05/16 06:55 Plt Count 178 K/MM3 (134-434) 09/05/16 06:55 MPV 8.0 fl (7.5-11.1) 09/05/16 06:55 CMP Sodium 138 mmol/L (136-145) 09/05/16 06:55 Potassium 4.1 mmol/L (3.5-5.1) 09/05/16 06:55 Chloride 101 mmol/L (98-107) 09/05/16 06:55 Carbon Dioxide 28 mmol/L (21-32) 09/05/16 06:55 Anion Gap 9 (8-16) 09/05/16 06:55 BUN 16 mg/dL (7-18) 09/05/16 06:55 Creatinine 0.9 mg/dL (0.7-1.3) 09/05/16 06:55 Random Glucose 129 mg/dL (74-106) H D 09/05/16 06:55 Calcium 8.6 mg/dL (8.5-10.1) 09/05/16 06:55 Current Medications Generic Name Dose Route Start Last Admin Trade Name [place] PRN Reason Stop Dose Admin Amitriptyline HCl 10 mg 09/05/16 22:00 Elavil - PO HS LEOBARDO Atenolol 150 mg 09/05/16 22:00 Tenormin - PO HS LEOBARDO Atorvastatin Calcium 20 mg 09/05/16 22:00 Lipitor - PO HS LEOBARDO Insulin Aspart 1 vial 09/05/16 07:00 09/05/16 17:02 Novolog Vial Sliding Scale - SQ 2 units ACHS LEOBARDO Administration Protocol Isosorbide Mononitrate 120 mg 09/05/16 10:00 09/05/16 10:50 Imdur - PO 120 mg DAILY LEOBARDO Administration Multivitamins/Minerals 1 each 09/05/16 10:00 09/05/16 10:51 Theragran-M PO 1 each DAILY LEOBARDO Administration Non-Formulary Medication 1,000 mg 09/05/16 10:00 [place]-3/Dha/Epa/Fish Oil [Fish Oil 1,000 Mg Softgel] PO DAILY LEOBARDO Ramipril 10 mg 09/05/16 10:00 09/05/16 10:49 Altace - PO 10 mg DAILY LEOBARDO Administration Ranolazine 500 mg 09/05/16 10:00 09/05/16 10:51 Ranexa - PO 500 mg BID LEOBARDO Administration Tamsulosin HCl 0.4 mg 09/05/16 08:30 09/05/16 10:49 Flomax - PO 0.4 mg DAILY@0830 LEOBARDO Administration Ticagrelor 90 mg 09/05/16 10:00 09/05/16 10:50 Brilinta - PO Not Given BID [facility] ASSESSMENT AND PLAN: 70 year old male with past medical history of HTN, HLD, CAD, [place] sp CABG x 4, diabetes, and bmp who presents with clot in lott with hematuria. Being admitted for observation. # Hematuria - completely resolved; Trend H&H # Lott catheter obstruction; Urology consulted for catheter flushing appreciated # HTN Continue home medications # HLD continue home medications # CAD continue home medications # Diabetes ; Sliding scale ;continue home medications DVT PPX - SCD
[2016-09-05] MEDS ORDERED: AMITRIPTYLINE HCL 10 MG TABLET (FP) PO SCH (22:00)
[2016-09-05] MEDS ORDERED: ATORVASTATIN CA 20 MG TABLET (FP) PO SCH (22:00)
[2016-09-05] MEDS ORDERED: ATENOLOL 50 MG TABLET (FP) PO SCH (22:00)
[2016-09-06] MEDS: TICAGRELOR 90 MG TABLET PO SCH ×2 (00:09→09:36)
[2016-09-06] MEDS: INSULIN SLIDING SCALE (NOVOLOG) 1 VIAL SQ SCH ×2 (06:30→11:27)
[2016-09-06] MEDS ORDERED: INSULIN (NOVOLOG) ASPART 100 UNITS/ML 10ML VIAL ONE (07:00)
[2016-09-06] MEDS: TAMSULOSIN HCL 0.4 MG CAP.ER.24H (FP) PO SCH (08:15)
[2016-09-06 08:29] LABS: MCHC 33.9 g/dl (32.0-35.9); MEAN CELL VOLUME 91.6 fl (80-96); MEAN PLT VOLUME 7.7 fl (7.5-11.1); PLATELET COUNT 175 K/MM3 (134-434); RDW 14.2 % (11.9-15.9); WHITE BLOOD COUNT 9.6 K/mm3 (4.0-10.0)
[2016-09-06 08:59] LABS: ANION GAP 6 (8-16); CALCIUM 8.8 mg/dL (8.5-10.1); CO2 30 mmol/L (21-32); CREATININE 0.9 mg/dL (0.7-1.3); GLUCOSE,RANDOM 142 mg/dL (74-106)
[2016-09-06] MEDS ORDERED: PT OWN MED DRAWER 7, Y5N ONE (09:01)
[2016-09-06] MEDS: RANOLAZINE E.R. 500 MG TABLET (FP) PO SCH (09:36)
[2016-09-06] MEDS: MULTIVITAMINS THER W-MINERALS COMBO TABLET (FP) PO SCH (09:36)
[2016-09-06] MEDS: ISOSORBIDE MONONITRATE 60 MG TAB.SR.24H (FP) PO SCH (09:37)
[2016-09-06] MEDS: RAMIPRIL 5 MG CAPSULE (FP) PO SCH (09:37)
[2016-09-06 09:39] VITALS: BP 150/67; PULSE 68; TEMP 98.2
--- NOTE | 2016-09-06 12:22 | PN ---
Teaching Attending Note Name of Resident: Marcell Shah ATTENDING PHYSICIAN STATEMENT I saw and evaluated the patient. I reviewed the resident's note and discussed the case with the resident. I agree with the resident's findings and plan as documented. SUBJECTIVE: Patient is urinating without any difficulty now, urinated multiple times. Removed lott. OBJECTIVE: Vital Signs Temperature 98.2 F 09/06/16 09:38 Pulse Rate 68 09/06/16 09:38 Respiratory Rate 18 09/06/16 09:38 Blood Pressure 150/67 09/06/16 09:38 O2 Sat by Pulse Oximetry (%) 96 09/06/16 06:00 CBCD WBC 9.6 K/mm3 (4.0-10.0) 09/06/16 08:00 RBC 4.76 M/mm3 (4.00-5.60) 09/06/16 08:00 Hgb 14.8 GM/dL (11.7-16.9) 09/06/16 08:00 Hct 43.6 % (35.4-49) 09/06/16 08:00 MCV 91.6 fl (80-96) 09/06/16 08:00 MCHC 33.9 g/dl (32.0-35.9) 09/06/16 08:00 RDW 14.2 % (11.9-15.9) 09/06/16 08:00 Plt Count 175 K/MM3 (134-434) 09/06/16 08:00 MPV 7.7 fl (7.5-11.1) 09/06/16 08:00 CMP Sodium 135 mmol/L (136-145) L 09/06/16 08:00 Potassium 4.2 mmol/L (3.5-5.1) 09/06/16 08:00 Chloride 99 mmol/L (98-107) 09/06/16 08:00 Carbon Dioxide 30 mmol/L (21-32) 09/06/16 08:00 Anion Gap 6 (8-16) L 09/06/16 08:00 BUN 15 mg/dL (7-18) 09/06/16 08:00 Creatinine 0.9 mg/dL (0.7-1.3) 09/06/16 08:00 Random Glucose 142 mg/dL (74-106) H 09/06/16 08:00 Calcium 8.8 mg/dL (8.5-10.1) 09/06/16 08:00 Current Medications Generic Name Dose Route Start Last Admin Trade Name Yanet PRN Reason Stop Dose Admin Amitriptyline HCl 10 mg 09/05/16 22:00 09/05/16 21:39 Elavil - PO 10 mg HS LEOBARDO Administration Atenolol 150 mg 09/05/16 22:00 09/05/16 21:39 Tenormin - PO 150 mg HS LEOBARDO Administration Atorvastatin Calcium 20 mg 09/05/16 22:00 09/05/16 21:39 Lipitor - PO 20 mg HS LEOBARDO Administration Insulin Aspart 1 vial 09/05/16 07:00 09/06/16 11:27 Novolog Vial Sliding Scale - SQ 4 units ACHS [facility] Administration Protocol Isosorbide Mononitrate 120 mg 09/05/16 10:00 09/06/16 09:37 Imdur - PO 120 mg DAILY LEOBARDO Administration Multivitamins/Minerals 1 each 09/05/16 10:00 09/06/16 09:36 Theragran-M PO 1 each DAILY [facility] Administration Ramipril 10 mg 09/05/16 10:00 09/06/16 09:37 Altace - PO 10 mg DAILY LEOBARDO Administration Ranolazine 500 mg 09/05/16 10:00 09/06/16 09:36 Ranexa - PO 500 mg BID LEOBARDO Administration Tamsulosin HCl 0.4 mg 09/05/16 08:30 09/06/16 08:15 Flomax - PO 0.4 mg DAILY@0830 LEOBARDO Administration Ticagrelor 90 mg 09/05/16 23:00 09/06/16 09:36 Brilinta - PO Not Given BID [facility] Home Medications Medication Instructions Recorded Amitriptyline HCl [Elavil -] 10 mg PO HS 01/23/12 Atenolol [Tenormin -] 150 mg PO HS 01/23/12 Isosorbide Mononitrate [Imdur] 120 mg PO DAILY 01/23/12 Ramipril [Altace] 10 mg PO DAILY 01/23/12 Ranolazine [Ranexa] 500 mg PO BID 01/23/12 Repaglinide [Prandin] 0.5 mg PO TID 01/23/12 Sitagliptin Phos/Metformin HCl 1 each PO DAILY 01/23/12 [Janumet Xr 50-500 mg Tablet] Gemfibrozil 600 mg PO BID 01/29/14 Simvastatin [Zocor -] 40 mg PO ACDIN 01/29/14 Multivit-Min/FA/Lycopen/Lutein 1 each PO DAILY 04/11/16 [Centrum Silver Tablet] [place]-3/Dha/Epa/Fish Oil [Fish Oil 1,000 mg PO DAILY 04/11/16 1,000 mg Softgel] Empagliflozin [Jardiance] 10 mg PO DAILY 09/04/16 Tamsulosin HCl [Flomax] 0.4 mg PO DAILY #7 cap.er.24h 09/04/16 Ticagrelor [Brilinta] 90 mg PO BID 09/04/16 PE: per resident's note Abdomen and pelvis CT (without and with contrast) Clinical information: gross hematuria Multiplanar, multiphase imaging was performed following the intravenous administration of nonionic contrast in addition to noncontrast scanning. Oral contrast was also utilized. No urinary tract calculus or hydroureteronephrosis is noted. There is no definite CT evidence of a discrete upper or lower urinary tract mass lesion. Correlation with cystoscopy may be performed. A Lott catheter is seen in place. Prostate enlargement is noted which is probably moderate. The periprostatic fat planes appear intact. The seminal vesicles are symmetric. The kidneys, adrenal glands, spleen, and pancreas demonstrate no discrete abnormality. Incidental small right renal cortical cysts. In comparison to a prior CT study of 04/20/2007 interval development of a nonspecific spherical 0.7 cm sclerotic focus is seen within the left iliac bone posteriorly. Cholelithiasis is again noted. The gallbladder currently demonstrates a contracted appearance which may be on a physiologic basis versus secondary to chronic cholecystitis. Gallbladder size appeared unremarkable at the time of the previous exam. No biliary tract dilatation is seen. A nonspecific 0.7 cm low-attenuation focus is seen within the anterior segment of the right upper lobe laterally (transaxial image 35). This nonspecific focus cannot be definitely visualized on the 2007 exam however the prior study was performed utilizing arterial phase imaging only (CT angiography) . No definite lymphadenopathy is identified. There is diffuse fatty infiltration of the liver as on the prior study. Interval insertion of bilateral common iliac artery stents is seen. There is possible occlusion of the left common iliac artery stent. No aortic aneurysm is seen. Extensive atherosclerotic vascular calcifications are noted. No free intraperitoneal fluid is seen. There is no gross small bowel pathology. Left-sided colonic diverticulosis is noted without CT evidence of acute diverticulitis. IMPRESSION : There is no CT evidence of urolithiasis or hydroureteronephrosis. No discrete urinary tract mass lesion is identified. Prostate enlargement which is probably moderate. In comparison to a 2008 CT study interval development of a nonspecific 0.7 cm sclerotic focus is noted within the left iliac bone posteriorly. Correlate with serum PSA level and skeletal scintigraphy is suggested. A nonspecific 0.7 cm right hepatic lobe hypodense focus is seen. Correlation with contrast- enhanced MRI is suggested. Diffuse hepatic steatosis. Cholelithiasis. There is possible occlusion of a left common iliac artery stent. If clinically indicated correlate with CT angiography. ASSESSMENT AND PLAN: 70 year old male with past medical history of HTN, HLD, CAD, PA sp CABG x 4, diabetes, and bmp who presents with clot in lott with hematuria. Being admitted for observation. # Hematuria - completely resolved; Trend H&H # Lott catheter obstruction; Urology consulted for catheter flushing appreciated # HTN Continue home medications # HLD continue home medications # CAD continue home medications # Diabetes ; Sliding scale ;continue home medications Follow with Dr. Mckinney in am follow with Dr.Nirav ortega on 09/07/2016 at 1pm given an appointment to the patient regarding th CT report since report states that possible occlusion of the left common iliac. Patient has no pain or any claudication Follow with regarding the Hypodense lesion 0.7cm right hepatic lobe discussed with the patient in details
--- NOTE | 2016-09-06 12:22 | DS ---
Physical Exam: SUBJECTIVE: Patient seen and examined OBJECTIVE: Vital Signs Period Temp Pulse Resp BP Sys/Berry Pulse Ox Last 24 Hr 97.8 F-98.8 F 68-76 18-18 102-150/52-67 94-96 PHYSICAL EXAM GENERAL: The patient is awake, alert, and fully oriented, in no acute distress. HEAD: Normal with no signs of trauma. EYES: PERRL, extraocular movements intact, sclera anicteric, conjunctiva clear. ENT: Ears normal, nares patent, oropharynx clear without exudates, moist mucous membranes. NECK: Trachea midline, full range of motion, supple. LUNGS: Breath sounds equal, clear to auscultation bilaterally, no wheezes, no crackles, no accessory muscle use. HEART: Regular rate and rhythm, S1, S2 without murmur, rub or gallop. ABDOMEN: Soft, nontender, nondistended, normoactive bowel sounds, no guarding, no rebound, no hepatosplenomegaly, no masses. EXTREMITIES: 2+ pulses, warm, well-perfused, no edema. NEUROLOGICAL: Cranial nerves II through XII grossly intact. Normal speech, gait not observed. PSYCH: Normal mood, normal affect. SKIN: Warm, dry, normal turgor, no rashes or lesions noted. LABS Laboratory Results - last 24 hr 09/05/16 09/05/16 09/06/16 17:01 21:37 06:29 WBC RBC Hgb Hct MCV MCHC RDW Plt Count MPV Sodium Potassium Chloride Carbon Dioxide Anion Gap BUN Creatinine POC Glucometer 186 165 144 Random Glucose Calcium 09/06/16 09/06/16 09/06/16 08:00 08:00 11:27 WBC 9.6 RBC 4.76 Hgb 14.8 Hct 43.6 MCV 91.6 MCHC 33.9 RDW 14.2 Plt Count 175 MPV 7.7 Sodium 135 L Potassium 4.2 Chloride 99 Carbon Dioxide 30 Anion Gap 6 L BUN 15 Creatinine 0.9 POC Glucometer 241 Random Glucose 142 H Calcium 8.8 HOSPITAL COURSE: Date of Admission:09/04/16 Date of Discharge: 09/06/16 Minutes to complete discharge: 42 Discharge Summary Reason For Visit: URINARY RETENTION, HEMATURIA Current Active Problems Hematuria (Acute) Hypertensive cardiomyopathy (Acute) Urinary Retention (Acute) Condition: Stable - Instructions Diet, Activity, Other Instructions: -Follow up with Dr. Cancino this week. -You will need to follow up with Dr. Swain in one week. -Follow up with Dr. Smith for possible MRI for liver lesion -Follow up with Dr. Sharpe vascular surgery for possible stent occlusion. -Resume home meds as directed. - ADA diet -Increase activity as tolerated. Referrals: Bobo Sharpe MD [Staff Physician] - Anabel Cardoza MD [Staff Physician] - Wayne Swain MD [Staff Physician] - Peter Cancino MD [Staff Physician] - Disposition: HOME - Home Medications Comprehensive Discharge Medication List: Ambulatory Orders Amitriptyline HCl [Elavil -] 10 mg PO HS 01/23/12 Atenolol [Tenormin -] 150 mg PO HS 01/23/12 Isosorbide Mononitrate [Imdur] 120 mg PO DAILY 01/23/12 Ramipril [Altace] 10 mg PO DAILY 01/23/12 Ranolazine [Ranexa] 500 mg PO BID 01/23/12 Repaglinide [Prandin] 0.5 mg PO TID 01/23/12 Sitagliptin Phos/Metformin HCl [Janumet Xr 50-500 mg Tablet] 1 each PO DAILY 02/21 Gemfibrozil 600 mg PO BID 01/29/14 Simvastatin [Zocor -] 40 mg PO ACDIN 01/29/14 Multivit-Min/FA/Lycopen/Lutein [Centrum Silver Tablet] 1 each PO DAILY 04/11/16 [place]-3/Dha/Epa/Fish Oil [Fish Oil 1,000 mg Softgel] 1,000 mg PO DAILY 04/11/16 Empagliflozin [Jardiance] 10 mg PO DAILY 09/04/16 Tamsulosin HCl [Flomax] 0.4 mg PO DAILY #7 cap.er.24h 09/04/16 Ticagrelor [Brilinta -] 90 mg PO BID 09/04/16 Problem List - Problems (1) Hematuria (2) [place] catheter problem (3) CAD (coronary artery disease) (4) Diabetes mellitus (5) Hx of CABG (6) Hyperlipidemia This patient is new to me today: No Emergency Visit: Yes ED Registration Date: 09/04/16 Care time: The patient presented to the Emergency Department on the above date and was hospitalized for further evaluation of their emergent condition. Critical Care patient: Yes - Discharge Referral Referred to [facility] Med [facility].: No
== END 2016-09-06 12:41 | disposition home or self-care (01) ==
LOC: JER 15:59 → JERBED 22:03 → J5S 23:28
PROVIDERS: ADMIT Internal Medicine; ATTEND Internal Medicine
PROC: 3E013VG Introduction of Insulin into Subcutaneous Tissue, Percutaneous Approach (ICD-10-PCS; principal; 2016-09-04)
PROC: 3C1ZX8Z Irrigation of Indwelling Device using Irrigating Substance, External Approach (ICD-10-PCS; 2016-09-04)
DX: T83.098A Other mechanical complication of other urinary catheter, initial encounter (principal); R33.9 Retention of urine, unspecified; R31.9 Hematuria, unspecified; Y84.8 Other medical procedures as the cause of abnormal reaction of the patient, or of later complication, without mention of misadventure at the time of the procedure; Y92.9 Unspecified place or not applicable; I11.9 Hypertensive heart disease without heart failure; I25.10 Atherosclerotic heart disease of native coronary artery without angina pectoris; I25.2 Old myocardial infarction; I73.9 Peripheral vascular disease, unspecified; E78.5 Hyperlipidemia, unspecified; N40.0 Benign prostatic hyperplasia without lower urinary tract symptoms; F41.9 Anxiety disorder, unspecified; Z95.1 Presence of aortocoronary bypass graft; Z95.5 Presence of coronary angioplasty implant and graft; Z79.84 Long term (current) use of oral hypoglycemic drugs; Z79.4 Long term (current) use of insulin; Z87.891 Personal history of nicotine dependence
CPT/HCPCS: 36415; 71010-TC; 74178-TC; 80048; 85025; 85027; 85610; 85730; 86850; 86900; 86901; 87086; 93005; 93010; 99284-25; G0378; Q9967

== ENCOUNTER 2017-05-01 18:07 | Observation (INO) | payer OTHER ==
--- NOTE | 2017-05-01 18:25 | PDOC ---
History of Present Illness - General Chief Complaint: Chest Pain Stated Complaint: CEM ARM PAIN(CHEST PAIN R/O) Time Seen by Provider: 05/01/17 18:10 - History of Present Illness Initial Comments: 05/01/17 18:29 "Patient is a 71 M with PMHx of hypertension, hypercholesterolemia, coronary artery disease, myocardial infarction s/p CABG x4 and stents, DM, and BPH, who presents with b/l arm pain since 10:30 am this morning. Patient states that he began experiencing a heaviness and soreness in his biceps after lifting heavy boxes this morning. He denies ever having any chest pain, SOB, diaphoresis, or nausea. However, he reports that the soreness/heaviness in his arms is similar to what he experienced during his [place] in . He states he took 6 nitroglycerin tablets today which he states relieved his pain temporarily. He saw his fur blower today who gave him another nitro around 5:30pm and sent him to the ER to have his cardiac enzymes checked. No recent illness, fever chills, nausea, vomiting, or leg swelling. Pensionholder Information Clerk: Dr Bermudez PCP: Wayne Swain " Past History - Past Medical History Allergies/Adverse Reactions: Allergies Allergy/AdvReac Type Severity Reaction Status Date / Time No Known Drug Allergies Allergy Verified 05/01/17 18:08 Home Medications: Ambulatory Orders Amitriptyline HCl [Elavil -] 10 mg PO HS 01/23/12 Atenolol [Tenormin -] 150 mg PO HS 01/23/12 Isosorbide Mononitrate [Imdur] 120 mg PO DAILY 01/23/12 Ramipril [Altace] 10 mg PO DAILY 01/23/12 Ranolazine [Ranexa] 1,000 mg PO BID 01/23/12 Repaglinide [Prandin] 1 mg PO TID 01/23/12 Sitagliptin Phos/Metformin HCl [Janumet Xr 50-500 mg Tablet] 1 each PO DAILY 02/21 Gemfibrozil 600 mg PO BID 01/29/14 Simvastatin [Zocor -] 40 mg PO ACDIN 01/29/14 Empagliflozin [Jardiance] 10 mg PO DAILY 09/04/16 Tamsulosin HCl [Flomax] 0.4 mg PO DAILY #7 cap.er.24h 09/04/16 Nitroglycerin 0.4 mg SL PRN PRN 05/01/17 Anemia: No Asthma: No Cancer: No Cardiac Disorders: Yes ([id number], CABG X4 2005, STENTS IN ILEAC ARTERY) CVA: No COPD: No CHF: No Dementia: No Diabetes: Yes (NIDDM) GI Disorders: No Disorders: Yes (BPH) HTN: Yes Hypercholesterolemia: Yes Liver Disease: No Seizures: No Thyroid Disease: No - Surgical History Abdominal Surgery: No Appendectomy: No Cardiac Surgery: Yes (cabg) Cholecystectomy: No Neurologic Surgery: Yes (LAMINCTOMY 2003 RECENT BACK SURGERY C567 T1) Orthopedic Surgery: No - Suicide/Smoking/Psychosocial Hx Smoking History: Never smoked Have you smoked in the past 12 months: No If you are a former smoker, when did you quit?: 1975 Hx Alcohol Use: No Drug/Substance Use Hx: No Substance Use Type: None Hx Substance Use Treatment: No Review of Systems - Review of Systems Comments:: 05/01/17 18:25 "GENERAL/CONSTITUTIONAL: No fever or chills. No weakness. HEAD, EYES, EARS, NOSE AND THROAT: No change in vision. No ear pain or discharge. No sore throat. CARDIOVASCULAR: No chest pain or shortness of breath. RESPIRATORY: No cough, wheezing, or hemoptysis. GASTROINTESTINAL: No nausea, vomiting, diarrhea or constipation. GENITOURINARY: No dysuria, frequency, or change in urination. MUSCULOSKELETAL: + BUE heaviness, No joint or muscle swelling or pain. No neck or back pain. SKIN: No rash NEUROLOGIC: No headache, vertigo, loss of consciousness, or change in strength/ sensation. ENDOCRINE: No increased thirst. No abnormal weight change. HEMATOLOGIC/LYMPHATIC: No anemia, easy bleeding, or history of blood clots. ALLERGIC/IMMUNOLOGIC: No hives or skin allergy. " *Physical Exam - Physical Exam Comments: 05/01/17 18:25 "GENERAL: Awake, alert, and fully oriented, in no acute distress HEAD: No signs of trauma EYES: PERRLA, EOMI, sclera anicteric, conjunctiva clear ENT: Auricles normal inspection, hearing grossly normal, nares patent, oropharynx clear without exudates. Moist mucosa NECK: Nontender, no stepoffs, Normal ROM, supple, no lymphadenopathy, JVD, or masses LUNGS: Breath sounds equal, clear to auscultation bilaterally. No wheezes, and no crackles HEART: Regular rate and rhythm, normal S1 and S2, no murmurs, rubs or gallops ABDOMEN: Soft, nontender, normoactive bowel sounds. No guarding, no rebound. No masses EXTREMITIES: Normal range of motion, no edema. No clubbing or cyanosis. No cords, erythema, or tenderness NEUROLOGICAL: Cranial nerves II through XII intact. 5/5 strength and sensation in all extremities, Normal speech, normal gait, normal cerebellar function SKIN: Warm, Dry, normal turgor, no rashes or lesions noted. " Heart Score/ECG Review - History History: Slightly suspicious - Electrocardiogram EKG: Non specific repolarization disturbance - Age Age: >/= 65 - Risk Factors Risk Factors Heart Score: Yes Hx Hypercholesterolemia, Yes Hx Hypertension, Yes Hx Diabetes Based on the list above the patient has:: >/=3 risk factors or Hx atherosclerotic disease - ECG Impressions Comment:: 05/01/17 18:22 NSR, no [place]/STDs, TWI in III and aVF, [place] 210, rate 57, unchanged since prior ED Treatment Course - RADIOLOGY Radiology Studies Ordered: Category Date Time Status CHEST X-RAY PORTABLE* [RAD] Stat Radiology 05/01/17 18:19 Ordered Medical Decision Making - Medical Decision Making 05/01/17 18:24 71 M with bilateral arm heaviness. Possibly msk in etiology as pt was lifting heavy boxes today. However, pt has significant cardiac history, so will r/o ACS with serial troponins. - Labs, trop - CXR - Aspirin - Cardiology consult - Dr. Bermudez 05/01/17 18:57 Case signed out to oncoming attending at 7pm, pending labs, XR, and possible admission. Case discussed in detail with oncoming Emergency Physician including history, physical exam and ancillary studies. Oncoming Emergency Physician has assumed care for the patient and will complete the evaluation and treatment. Patient is aware of the plan.
[2017-05-01 18:38] VITALS: BMI 26.5
[2017-05-01 19:20] LABS: BASO % 0.4 % (0-2.0); EOS % 4.4 % (0-4.5); HEMATOCRIT 46.7 % (35.4-49); HEMOGLOBIN 16.1 GM/dl (11.7-16.9); MCH 31.1 pg (25.7-33.7); MCHC 34.5 g/dl (32.0-35.9); MEAN CELL VOLUME 90.1 fl (80-96); MEAN PLT VOLUME 7.4 fl (7.5-11.1); MONO % 11.8 % (3.8-10.2); NEUT % 54.4 % (42.8-82.8); PLATELET COUNT 214 K/MM3 (134-434); RBC 5.18 M/mm3 (4.00-5.60); RDW 13.8 % (11.9-15.9); WHITE BLOOD COUNT 5.8 K/mm3 (4.0-10.8)
[2017-05-01 19:30] LABS: ACTIVATED PTT 30.4 SECONDS (24.0-38.9)
--- NOTE | 2017-05-01 19:31 | PDOC ---
*Physical Exam - Vital Signs Last Vital Signs Temp Pulse Resp BP Pulse Ox 98.3 F 57 L 20 153/71 98 05/01/17 18:08 05/01/17 18:08 05/01/17 18:08 05/01/17 18:08 05/01/17 18:08 Heart Score/ECG Review - History History: Moderately suspicious - Electrocardiogram EKG: Normal - Age Age: >/= 65 - Risk Factors Based on the list above the patient has:: >/=3 risk factors or Hx atherosclerotic disease - Troponin Troponin: </= normal limit - Score Heart Score - Total: 5 ED Treatment Course - LABORATORY CBC & Chemistry Diagram: 05/01/17 19:00 05/01/17 19:00 Progress Note - Progress Note Progress Note: Care of this patient was transferred me to nv from Dr. Montgomery at 1900 hrs. Patient is a 71-year-old male with a substantial cardiac history. Patient comes in complaining of bilateral arm heaviness which is similar to the discomfort and pain he had in the past when he was having cardiac problems including [place] and prior to having some stents placed. Patient's EKG shows no acute changes and is no significant changes from prior EKGs However given patient's risk factors and history he will be admitted to the hospital to a telemetry bed if his workup is otherwise negative or may need to be transferred to [facility] if his workup is concerning for this being cardiac. 20:20 Troponin was measurable at 0.03 which is indeterminate range Given patient's multiple risk factors and a heart score of 5 patient will be placed in a observation telemetry bed to rule him out with additional sets of enzymes. Discussed with Dr. Solis hospitalist service Signout given to the admitting hospitalist, who accepts the patient. Discussed plan with the patient family at bedside, Patient and family aware of the plan and agree. Patient is clinically unchanged and stable. *DC/Admit/Observation/Transfer Diagnosis at time of Disposition: CAD (coronary artery disease) Qualifiers: Coronary Disease-Associated Artery/Lesion type: unspecified vessel or lesion type [place] vs. transplanted heart: [place] heart Associated angina: without angina Qualified Code(s): I25.10 - Atherosclerotic heart disease of [place] coronary artery without angina pectoris Chest pain Qualifiers: Chest pain type: unspecified Qualified Code(s): R07.9 - Chest pain, unspecified - Discharge Dispostion Admit: Yes - Referrals - Patient Instructions - Post Discharge Activity
[2017-05-01 19:34] LABS: INR 1.01 (0.82-1.09); PROTHROMBIN TIME (PATIENT) 11.3 SEC (10.2-13.0)
[2017-05-01 19:42] LABS: ALBUMIN 3.9 g/dl (3.5-5.0); ALK PHOS 59 U/L (32-92); ANION GAP 6 (8-16); BILIRUBIN,TOTAL 0.5 mg/dl (0.2-1.0); BLOOD UREA NITROGEN 18 mg/dl (7-18); CALCIUM 9.1 mg/dl (8.4-10.2); CHLORIDE 103 mmol/L (98-107); CO2 25 mmol/L (22-28); CREATININE 0.8 mg/dl (0.6-1.3); GLUCOSE,RANDOM 128 mg/dl (74-106); POTASSIUM 4.2 mmol/L (3.5-5.1); SGOT/AST 30 U/L (10-42); SGPT/ALT 46 U/L (10-40); SODIUM 134 mmol/L (136-145)
[2017-05-01] MEDS ORDERED: ASPIRIN 81 MG CHEWABLE TABLETS PO ONE (20:21)
[2017-05-01] MEDS ORDERED: ASPIRIN 325 MG TABLET ONE (20:24)
--- NOTE | 2017-05-01 21:07 | HP ---
CHIEF COMPLAINT: Bilateral Arm Pain PCP: Dr[facility] Education Coordinator: Dr. Dex Bermudez HISTORY OF PRESENT ILLNESS: This is a 71 y/o man who presents to the ED with bilateral bicep pain since 10: 30am after lifting heavy boxes. Patient reports taking NGT sl x6 without relief. 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 Patient reports "feeling fine" earlier in the morning. Patient denies CP, palpitations diaphoresis, SOB. patient denies fever, chills, cough, N/V/D, constipation, dysuria. ER course was notable for: (1) Troponin I: < 0.03 (2) Chest Xray image- no infiltrate, no effusion (3) EKG- NSR 57 bpm, no [place]/STDs, TWI in III and aVF, Recent Travel: None PAST MEDICAL HISTORY: HTN HLD CAD (stents x4) HI s/p CABG DM BPH PAST SURGICAL HISTORY: CABG Cardiac Stents x4 Social History: Smoking: Former Alcohol: Occasional Drugs: Denies Family History: Father: Cardiac- HI Brother- Cardiac Stent Brother #2- Cardiac CABG Allergies No Known Drug Allergies Allergy (Verified 05/01/17 18:08) HOME MEDICATIONS: Home Medications Medication Instructions Recorded Amitriptyline HCl [Elavil -] 10 mg PO HS 01/23/12 Atenolol [Tenormin -] 150 mg PO HS 01/23/12 Isosorbide Mononitrate [Imdur] 120 mg PO DAILY 01/23/12 Ramipril [Altace] 10 mg PO DAILY 01/23/12 Ranolazine [Ranexa] 1,000 mg PO BID 01/23/12 Repaglinide [Prandin] 1 mg PO TID 01/23/12 Sitagliptin Phos/Metformin HCl 1 each PO DAILY 01/23/12 [Janumet Xr 50-500 mg Tablet] Gemfibrozil 600 mg PO BID 01/29/14 Simvastatin [Zocor -] 40 mg PO ACDIN 01/29/14 Empagliflozin [Jardiance] 10 mg PO DAILY 09/04/16 Tamsulosin HCl [Flomax] 0.4 mg PO DAILY #7 cap.er.24h 09/04/16 Nitroglycerin 0.4 mg SL PRN PRN 05/01/17 REVIEW OF SYSTEMS CONSTITUTIONAL: Absent: fever, chills, diaphoresis, generalized weakness, malaise, loss of appetite, weight change HEENT: Absent: rhinorrhea, nasal congestion, throat pain, throat swelling, difficulty swallowing, mouth swelling, ear pain, eye pain, visual changes CARDIOVASCULAR: Absent: chest pain, syncope, palpitations, irregular heart rate, lightheadedness , peripheral edema RESPIRATORY: Absent: cough, shortness of breath, dyspnea with exertion, orthopnea, wheezing, stridor, hemoptysis GASTROINTESTINAL: Absent: abdominal pain, abdominal distension, nausea, vomiting, diarrhea, constipation, melena, hematochezia GENITOURINARY: Absent: dysuria, frequency, urgency, hesitancy, hematuria, flank pain, genital pain MUSCULOSKELETAL: myalgia, arthralgia, Absent: myalgia, arthralgia, joint swelling, back pain, neck pain SKIN: Absent: rash, itching, pallor HEMATOLOGIC/IMMUNOLOGIC: Absent: easy bleeding, easy bruising, lymphadenopathy, frequent infections ENDOCRINE: Absent: unexplained weight gain, unexplained weight loss, heat intolerance, cold intolerance NEUROLOGIC: Absent: headache, focal weakness or paresthesias, dizziness, unsteady gait, seizure, mental status changes, bladder or bowel incontinence PSYCHIATRIC: Absent: anxiety, depression, suicidal or homicidal ideation, hallucinations. PHYSICAL EXAMINATION Vital Signs - 24 hr 05/01/17 18:08 Temperature 98.3 F Pulse Rate 57 L Respiratory 20 Rate Blood Pressure 153/71 O2 Sat by Pulse 98 Oximetry (%) GENERAL: Awake, alert, and fully oriented, in no acute distress. HEAD: Normal with no signs of trauma. EYES: Pupils equal, round and reactive to light, extraocular movements intact, sclera anicteric, conjunctiva clear. No lid lag. EARS, NOSE, THROAT: Ears normal, nares patent, oropharynx clear without exudates. Moist mucous membranes. NECK: Normal range of motion, supple without lymphadenopathy, JVD, or masses. LUNGS: Breath sounds equal, clear to auscultation bilaterally. No wheezes, and no crackles. No accessory muscle use. HEART: Regular rate and rhythm, normal S1 and S2 without murmur, rub or gallop. ABDOMEN: Soft, nontender, not distended, normoactive bowel sounds, no guarding, no rebound, no masses. No hepatomegaly or splenomegaly. MUSCULOSKELETAL: Normal range of motion at all joints. No bony deformities or tenderness. No CVA tenderness. UPPER EXTREMITIES: 2+ pulses, warm, well-perfused. No cyanosis. No clubbing. No peripheral edema. LOWER EXTREMITIES: 2+ pulses, warm, well-perfused. No calf tenderness. No peripheral edema. NEUROLOGICAL: Cranial nerves II-XII intact. Normal speech. Gait not observed. PSYCHIATRIC: Cooperative. Good eye contact. Appropriate mood and affect. SKIN: Warm, dry, normal turgor, no rashes or lesions noted, normal capillary refill. Laboratory Results - last 24 hr 05/01/17 05/01/17 05/01/17 19:00 19:00 19:00 WBC 5.8 RBC 5.18 Hgb 16.1 Hct 46.7 MCV 90.1 MCH 31.1 MCHC 34.5 RDW 13.8 Plt Count 214 MPV 7.4 L Neutrophils % 54.4 Lymphocytes % 29.0 Monocytes % 11.8 H Eosinophils % 4.4 Basophils % 0.4 PT with INR 11.3 INR 1.01 PTT (Actin FS) 30.4 Sodium 134 L Potassium 4.2 Chloride 103 Carbon Dioxide 25 Anion Gap 6 L BUN 18 Creatinine 0.8 Creat Clearance w eGFR > 60 Random Glucose 128 H Calcium 9.1 Total Bilirubin 0.5 AST 30 ALT 46 H Alkaline Phosphatase 59 Creatine Kinase 136 Troponin I B-Natriuretic Peptide Total Protein 7.0 Albumin 3.9 Blood Type Antibody Screen 05/01/17 05/01/17 05/01/17 19:00 19:00 19:04 WBC RBC Hgb Hct MCV MCH MCHC RDW Plt Count MPV Neutrophils % Lymphocytes % Monocytes % Eosinophils % Basophils % PT with INR INR PTT (Actin FS) Sodium Potassium Chloride Carbon Dioxide Anion Gap BUN Creatinine Creat Clearance w eGFR Random Glucose Calcium Total Bilirubin AST ALT Alkaline Phosphatase Creatine Kinase Troponin I < 0.03 B-Natriuretic Peptide 183.70 H Total Protein Albumin Blood Type O POSITIVE Antibody Screen Negative ASSESSMENT/PLAN: This is a 71 y/o man with a PMHx of: HTN, HLD, CAD, HI s/p CABG, Stents x4, DM, BPH. Placed in Tele Observation for B/L Arm heaviness r/o HI. Plan: 1. Cardiac: Bicep Heaviness//Hypertension//Hyperlipidemia//Coronary Artery Disease - r/o HI - HEART SCORE 6 - Tele monitoring - Serial enzymes neg x1 - EKG- reviewed - Appreciate Cardiology consult - Echo - Continue home meds with parameters - Lipid panel in am - Monitor renal function 2. Endo: Diabetes Mellitus - Stable - BGMs - Continue home meds - HgbA1c in am 3. : - Continue Flomax 4. FEN - Po Fluids tolerated - Replete lytes prn - Low Na, 1800 ADA Diet 5. DVT Prophylaxis - OOB - SCDs - Consider AC if LOS>48 hrs Code Status: Full Code Dispo: Observation Problem List - Problem (1) Chest pain Code(s): R07.9 - CHEST PAIN, UNSPECIFIED Qualifiers: Chest pain type: unspecified Qualified Code(s): R07.9 - Chest pain, unspecified (2) Angina pectoris Code(s): I20.9 - ANGINA PECTORIS, UNSPECIFIED (3) CAD (coronary artery disease) Code(s): I25.10 - ATHSCL HEART DISEASE OF [place] CORONARY ARTERY W/O ANG PCTRS Qualifiers: Coronary Disease-Associated Artery/Lesion type: unspecified vessel or lesion type [place] vs. 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 use : without skilled nursing use Qualified Code(s): E11.51 - Type 2 diabetes mellitus with diabetic peripheral angiopathy without gangrene (5) Hyperlipidemia Code(s): E78.5 - HYPERLIPIDEMIA, UNSPECIFIED Qualifiers: Hyperlipidemia type: pure hypercholesterolemia Qualified Code(s): E78.00 - Pure hypercholesterolemia, unspecified (6) Hypertensive cardiomyopathy Code(s): I11.9 - HYPERTENSIVE HEART DISEASE WITHOUT HEART FAILURE; I43 - CARDIOMYOPATHY IN DISEASES CLASSIFIED ELSEWHERE Qualifiers: Heart failure presence: without heart failure Qualified Code(s): I11.9 - Hypertensive heart disease without heart failure (7) Peripheral arterial disease Code(s): I73.9 - PERIPHERAL VASCULAR DISEASE, UNSPECIFIED (8) Urinary Retention Code(s): R33.9 - RETENTION OF URINE, UNSPECIFIED Visit type - Emergency Visit Emergency Visit: Yes ED Registration Date: 05/01/17 Care time: The patient presented to the Emergency Department on the above date and was hospitalized for further evaluation of their emergent condition. - New Patient This patient is new to me today: Yes Date on this admission: 05/01/17 - Critical Care Critical Care patient: No
[2017-05-01] MEDS ORDERED: AMITRIPTYLINE HCL 10 MG TABLET (FP) PO SCH (22:00)
[2017-05-01] MEDS ORDERED: ATENOLOL 50 MG TABLET (FP) PO SCH (22:00)
[2017-05-01] MEDS ORDERED: ATORVASTATIN CA 20 MG TABLET (FP) PO SCH (23:00)
[2017-05-01] MEDS: RANOLAZINE E.R. 500 MG TABLET (FP) PO SCH (23:51)
[2017-05-02 06:18] VITALS: BP 143/63; PULSE 50; TEMP 97.9
[2017-05-02] MEDS ORDERED: GEMFIBROZIL 600 MG TABLET (FP) PO SCH (07:00)
[2017-05-02] MEDS ORDERED: sitaGLIPtin PHOSPHATE 50 MG TABLET PO SCH (07:00)
[2017-05-02] MEDS ORDERED: REPAGLINIDE 0.5 MG TABLET (FP) PO SCH (07:00)
[2017-05-02] MEDS ORDERED: TAMSULOSIN HCL 0.4 MG CAP.ER.24H (FP) PO SCH (08:30)
[2017-05-02 08:37] LABS: ANION GAP 4 (8-16); BLOOD UREA NITROGEN 18 mg/dl (7-18); CALCIUM 8.6 mg/dl (8.4-10.2); CHLORIDE 102 mmol/L (98-107); CO2 27 mmol/L (22-28); GLUCOSE,RANDOM 123 mg/dl (74-106); MAGNESIUM 1.9 mg/dL (1.8-2.4); PHOSPHOROUS 3.4 mg/dl (2.5-4.6); POTASSIUM 4.1 mmol/L (3.5-5.1); SODIUM 133 mmol/L (136-145)
[2017-05-02 08:41] LABS: BASO % 0.3 % (0-2.0); EOS % 4.9 % (0-4.5); HEMATOCRIT 44.3 % (35.4-49); HEMOGLOBIN 15.2 GM/dl (11.7-16.9); LYMPH % 31.8 % (8-40); MCHC 34.3 g/dl (32.0-35.9); MEAN CELL VOLUME 90.4 fl (80-96); MEAN PLT VOLUME 7.8 fl (7.5-11.1); MONO % 11.2 % (3.8-10.2); NEUT % 51.8 % (42.8-82.8); PLATELET COUNT 182 K/MM3 (134-434); RDW 13.7 % (11.9-15.9); WHITE BLOOD COUNT 5.8 K/mm3 (4.0-10.8)
[2017-05-02] MEDS: RANOLAZINE E.R. 500 MG TABLET (FP) PO SCH (09:19)
[2017-05-02] MEDS ORDERED: METFORMIN HCL PO SCH (10:00)
[2017-05-02] MEDS ORDERED: [UNRECOGNIZED DRUG - OTHER] PO SCH (10:00)
[2017-05-02] MEDS ORDERED: SITAGLIPTIN PHOS PO SCH (10:00)
[2017-05-02] MEDS ORDERED: PATIENT'S OWN MEDICATION (NON-FORMULARY) (Empagliflozin [Jardiance] 10 MG) PO SCH (10:00)
[2017-05-02] MEDS ORDERED: FLU VACCINE QUAD 60 MCG/0.5 ML (MDV 17-18) IM ONE (10:00)
[2017-05-02] MEDS ORDERED: ISOSORBIDE MONONITRATE 60 MG TAB.SR.24H (FP) PO SCH (10:00)
[2017-05-02] MEDS ORDERED: RAMIPRIL 5 MG CAPSULE (FP) PO SCH (10:00)
--- NOTE | 2017-05-02 10:40 | DS ---
Physical Examination Vital Signs: Vital Signs Temperature 97.9 F 05/02/17 06:00 Pulse Rate 50 L 05/02/17 06:00 Respiratory Rate 18 05/02/17 06:00 Blood Pressure 143/63 05/02/17 06:00 O2 Sat by Pulse Oximetry (%) 97 05/02/17 06:16 Labs: CBC, BMP 05/02/17 07:20 05/02/17 07:20 Discharge Summary Reason For Visit: CHEST PAIN Current Active Problems CAD (coronary artery disease) (Acute) Chest pain (Acute) Hospital Course: Spoke to Dr. Bermudez who recommends outpatient ECHO in the office this week. The (who works at Dr. Bermudez's office) will having the patient go to the office this week for an outpatient ECHO - Instructions - Home Medications Comprehensive Discharge Medication List: Ambulatory Orders Amitriptyline HCl [Elavil -] 10 mg PO HS 01/23/12 Atenolol [Tenormin -] 150 mg PO HS 01/23/12 Isosorbide Mononitrate [Imdur] 120 mg PO DAILY 01/23/12 Ramipril [Altace] 10 mg PO DAILY 01/23/12 Ranolazine [Ranexa] 1,000 mg PO BID 01/23/12 Repaglinide [Prandin] 1 mg PO TID 01/23/12 Sitagliptin Phos/Metformin HCl [Janumet Xr 50-500 mg Tablet] 1 each PO DAILY 02/21 Gemfibrozil 600 mg PO BID 01/29/14 Simvastatin [Zocor -] 40 mg PO ACDIN 01/29/14 Empagliflozin [Jardiance] 10 mg PO DAILY 09/04/16 Tamsulosin HCl [Flomax] 0.4 mg PO DAILY #7 cap.er.24h 09/04/16 Nitroglycerin 0.4 mg SL PRN PRN 05/01/17
--- NOTE | 2017-05-02 11:38 | CONS ---
CARDIOLOGY CONSULTATION DATE OF CONSULTATION: 05/02/2017 REQUESTING PHYSICIAN: NATY Gutierrez CHIEF COMPLAINT: Pain involving both upper extremities. HISTORY OF PRESENT ILLNESS: The patient is a 71-year-old white gentleman with longstanding history of coronary artery disease status post myocardial infarction in 1983, status post PCI/stenting of the right coronary artery, status post coronary artery bypass grafting in 2005, idz-ryypxte-kuvlmkffr diabetes mellitus, hypertension, hypercholesterolemia, peripheral arterial disease status post bilateral iliac artery stenting in 2007. Patient was moving heavy objects at home and developed sudden onset of bilateral upper extremity discomfort similar to his previous episodes of angina pectoris. He took a total of 6 sublingual nitroglycerin over a period of time with minimal relief and presented to the office still having upper extremity discomfort and was given another nitroglycerin with some degree of relief. In view of ongoing symptoms, he was advised hospitalization and was sent to [facility]. On reviewing his nitroglycerin, it appears that that in 2009. Patient denies having chest, back, or jaw pain or discomfort. There is no history of diaphoresis, nausea, or vomiting. No history of dyspnea either at rest or with exertion. No history of palpitations, lightheadedness, dizziness, presyncope, or syncope reported. Since admission, he has been pain free. The patient a few months ago had a cardiac catheterization which revealed a patent HERNANDEZ graft. He has a small, diffusely diseased left circumflex coronary artery. The right coronary artery is totally occluded, and he has collaterals to the right coronary artery. He has continued on medications. PAST HISTORY: As mentioned in the history of present illness. History of BPH. SURGICAL HISTORY: 1. Status post coronary artery bypass grafting in 2005. 2. Status post cervical laminectomy complicated by nerve damage and significant loss of sensory and motor function of the right hand. 3. Status post lumbar laminectomy in 2002. 4. A Green laser procedure for BPH in 2014. 5. Status post left carotid endarterectomy. SOCIAL HISTORY: He is . He still is employed. Has 3 sons. He smoked from age 20 to 30, over 1 pack of cigarettes per day; has 2 glasses of wine at dinnertime, has 4 cups of decaffeinated coffee per day. No history of drug use. FAMILY HISTORY: Father at the age of 53 related to a fall. Mother at age 72. She was hypertensive and had congestive heart failure. He had 2 twin brothers. Both of them have coronary artery disease. One of them had coronary artery bypass grafting at 65, and the other brother had PCI and stenting. Had a sister who at the age of 6 weeks, apparently related to "crib ." He has multiple first cousins from the mother's side, who have coronary artery disease. ALLERGIES: Intolerant to LIPITOR. MEDICATIONS: 1. Tamsulosin 0.4 mg p.o. daily. 2. Altace 10 mg p.o. daily. 3. Elavil 10 mg p.o. daily. 4. Atenolol 150 mg p.o. daily. 5. Glucophage 500 mg p.o. a.c. breakfast. 6. Januvia 50 mg p.o. daily a.c. breakfast. 7. Jardiance 10 mg p.o. daily. 8. Ranexa 1000 mg p.o. daily. 9. Gemfibrozil 600 mg p.o. b.i.d. 10. Lipitor 20 mg p.o. daily. 11. Prandin 1 mg p.o. t.i.d. a.c. 12. Isosorbide mononitrate 120 mg p.o. daily. REVIEW OF SYSTEMS: Constitutional: No history of chills, fever, or night sweats. HEENT: No history of headaches, diplopia, or blurred vision. No history of epistaxis. History of tinnitus. No history of deafness reported. Cardiovascular: See history of present illness. Respiratory: No history of cough, expectoration, or hemoptysis. Genitourinary: History of hematuria when he was on Brilinta. Apparently, workup did not reveal any localizing lesions. Central Nervous System: No history of seizures, syncope, lightheadedness, dizziness. History of focal weakness of the right hand following cervical laminectomy. Endocrine: See history of present illness. No history of intolerance to cold or warm weather. Musculoskeletal: History of chronic lumbosacral pain that is precipitated by sleeping on a bed. Hematological: No history of ecchymosis, recent bleeding, or anemia. PHYSICAL EXAMINATION: General: A 71-year-old gentleman who was in no distress. No pallor, cyanosis, clubbing, or jaundice. Vital Signs: Blood pressure 143/63 mmHg. Pulse 50 beats per minute and regular. Temperature 97.9 degrees Fahrenheit. Respirations 18 per minute. Oxygen saturation was 97% on room air. Weight was 185 pounds. Neck: Supple. No jugular venous distention. Hepatojugular reflex was negative. Carotids were 2+. Upstrokes were normal. No bruits were heard, and no thyromegaly was present. Trachea was midline. No supraclavicular or submandibular lymphadenopathy. Heart: PMI was in the fifth intercostal space. No heaves or thrills. S1 and S2 were normal. No murmur or gallops were heard. Lungs: Clear on auscultation. Chest: Normal AP diameter. Expansion was symmetrical. There was a well-healed midline sternotomy scar. Abdomen: Soft, protuberant, and nontender. No hepatosplenomegaly or palpable masses were felt. Bowel sounds are present. No bruits were heard. Extremities: No calf tenderness or dependent edema. Femoral pulses were 2+. Popliteal pulses were not palpable. Dorsalis pedis pulses were 2+. Posterior tibial pulses were 1+. There was deformity of the right hand. LABORATORY DATA: May 02, 2017, CBC: WBC count 5800; hemoglobin 15.2 g/dL; platelet count 182,000; slightly elevated lymphocyte 11.2%; eosinophils were also mildly elevated at 4.9%. Chemistry: Sodium 133, potassium 4.1, chloride 102, CO2 of 27 mmol/L. Random glucose 123 mg/dL. Calcium 8.6 mg/dL. Magnesium 1.9. CK 105 and 95, respectively. Troponins were less than 0.02 and 0.03. ECG is not available. Chest x-ray reported as no acute pathology. No significant change since September 04, 2016. IMPRESSION: 1. Coronary artery disease status post myocardial infarction, status post percutaneous coronary intervention/stenting, status post coronary artery bypass grafting, recurrence of angina pectoris precipitated by lifting heavy objects. 2. Jsl-qnurxpz-[id number] diabetes mellitus. 3. Hypertension, hypertensive cardiovascular disease. 4. Dyslipidemia, type 2-B. 5. Peripheral arterial disease status post bilateral iliac artery stenting. 6. Exogenous obesity. RECOMMENDATIONS: 1. Continue medications as outlined. 2. Add amlodipine 5 mg p.o. daily. 3. Patient was strongly counseled not to lift, push, pull any heavy objects. 4. Counseled regarding dietary restrictions and exercise. 5. Must carry fresh batch of nitroglycerin and he is well aware of its indication and potential side effects. 6. Further evaluation and workup on an outpatient basis. I thank you again for your referral. Yours sincerely, BRIDGET LIND M.D. [id number]
--- NOTE | 2017-05-02 15:02 | EKG ---
Test Reason : Blood Pressure : / mmHG Vent. Rate : 057 BPM Atrial Rate : 057 BPM P-R Int : 210 ms QRS Dur : 110 ms QT Int : 426 ms P-R-T Axes : 027 004 -11 degrees QTc Int : 414 ms SINUS BRADYCARDIA WITH 1ST DEGREE A-V BLOCK OTHERWISE NORMAL ECG Confirmed by Bo Ward MD ([id number]) on 05/02/2017 3:01:47 PM Referred By: Raheem Solis Confirmed By:Bo Ward MD
[2017-05-02 18:44] LABS: CHOLESTEROL 156 mg/dl; HDL CHOLESTEROL 37 mg/dl (29-89); LDL CHOLESTEROL (ONLY DFH) 78 mg/dl; TRIGLYCERIDES 207 mg/dl (35-160)
[2017-05-02] MEDS ORDERED: ATORVASTATIN CA 20 MG TABLET (FP) PO SCH (22:00)
== END 2017-05-02 12:00 | disposition home or self-care (01) ==
LOC: FER 18:07 → FM/S 21:02
PROVIDERS: ADMIT Internal Medicine; ATTEND Registered Nurse
DX: I25.10 Atherosclerotic heart disease of native coronary artery without angina pectoris (principal); R07.9 Chest pain, unspecified; I10 Essential (primary) hypertension; E78.5 Hyperlipidemia, unspecified; E11.9 Type 2 diabetes mellitus without complications; I25.2 Old myocardial infarction; N40.0 Benign prostatic hyperplasia without lower urinary tract symptoms; Z95.1 Presence of aortocoronary bypass graft; Z95.5 Presence of coronary angioplasty implant and graft; Z79.84 Long term (current) use of oral hypoglycemic drugs; I11.9 Hypertensive heart disease without heart failure; I73.9 Peripheral vascular disease, unspecified; E66.09 Other obesity due to excess calories; Z68.26 Body mass index [BMI] 26.0-26.9, adult
CPT/HCPCS: 36415; 71045-TC-FY; 80048; 80053; 80061; 82550; 82962; 83735; 83880; 84100; 84484; 85025; 85610; 85730; 86850; 86900; 86901; 90688; 93005; 99284-25; G0378

== ENCOUNTER 2017-07-02 15:20 | Emergency (ER) | payer OTHER ==
[2017-07-02 15:44] VITALS: BP 138/75; PULSE 69; TEMP 98.1; BMI 28.7
[2017-07-02 16:24] LABS: BASO % 0.5 % (0-2.0); EOS % 3.7 % (0-4.5); HEMATOCRIT 44.6 % (35.4-49); LYMPH % 14.5 % (8-40); MCHC 33.7 g/dl (32.0-35.9); MEAN CELL VOLUME 92.1 fl (80-96); MEAN PLT VOLUME 8.1 fl (7.5-11.1); MONO % 10.3 % (3.8-10.2); PLATELET COUNT 191 K/MM3 (134-434); RBC 4.84 M/mm3 (4.00-5.60); RDW 14.1 % (11.9-15.9); WHITE BLOOD COUNT 7.6 K/mm3 (4.0-10.0)
[2017-07-02 16:39] LABS: PROTHROMBIN TIME (PATIENT) 11.3 SEC (9.98-11.88)
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
== END 2017-07-02 18:07 | disposition home or self-care (01) ==
LOC: JER 15:20
DX: S09.8XXA Other specified injuries of head, initial encounter (principal); V49.49XA Driver injured in collision with other motor vehicles in traffic accident, initial encounter; Y92.414 Local residential or business street as the place of occurrence of the external cause; W22.11XA Striking against or struck by driver side automobile airbag, initial encounter; Y93.89 Activity, other specified; Y99.8 Other external cause status; I25.2 Old myocardial infarction; I25.10 Atherosclerotic heart disease of native coronary artery without angina pectoris; I10 Essential (primary) hypertension; Z95.1 Presence of aortocoronary bypass graft; N40.0 Benign prostatic hyperplasia without lower urinary tract symptoms; Z95.828 Presence of other vascular implants and grafts; E78.00 Pure hypercholesterolemia, unspecified
CPT/HCPCS: 36415; 70450-TC; 72125-TC; 85025; 85610; 99282-25

== ENCOUNTER 2017-09-06 06:24 | Day surgery (SDC) | payer OTHER ==
[2017-09-05 16:03] VITALS: BMI 26.5
[~2017-09-06 06:24] MED LIST: ACETAMINOPHEN 325 MG TABLET (FP) PO PRN; BUPIVACAINE HCL/PF 0.75% 10 ML VIAL PNB ONE; EPINEPHrine/PF 1 MG/1 ML (1:1,000) AMPULE SQ ONE; LIDOCAINE HCL 1% PRESERVATIVE FREE - 30ML VIAL PNB ONE; LIDOCAINE HCL/PF 2% SDV 5ML VIAL PNB ONE; PHENYLEPHRINE/KETOROLAC 4 ML VIAL IO ONE
[2017-09-06] MEDS ORDERED: OFLOXACIN 0.3% OPHTHALMIC SOLUTION 5 ML BOTTLE ONE (06:57)
[2017-09-06] MEDS ORDERED: TROPICAMIDE 1% OPHTH SOLN 15 ML BOTTLE ONE (06:57)
[2017-09-06] MEDS ORDERED: FLURBIPROFEN 0.03% OPHTH SOLN 2.5 ML BOTTLE ONE (06:57)
[2017-09-06] MEDS ORDERED: CYCLOPENTOLATE HCL 1% OPHTH SOLN 2 ML BOTTLE ONE (06:57)
[2017-09-06] MEDS ORDERED: PHENYLEPHRINE 2.5% OPHTH SOLN 15 ML BOTTLE ONE (06:57)
[2017-09-06] MEDS: TROPICAMIDE 1% OPHTH SOLN 15 ML BOTTLE OP SCH ×3 (07:00→07:24)
[2017-09-06] MEDS: PHENYLEPHRINE 2.5% OPHTH SOLN 15 ML BOTTLE OP SCH ×3 (07:00→07:24)
[2017-09-06] MEDS: OFLOXACIN 0.3% OPHTHALMIC SOLUTION 5 ML BOTTLE OP SCH ×3 (07:00→07:24)
[2017-09-06] MEDS: FLURBIPROFEN 0.03% OPHTH SOLN 2.5 ML BOTTLE OP SCH ×3 (07:00→07:24)
[2017-09-06] MEDS: CYCLOPENTOLATE HCL 1% OPHTH SOLN 2 ML BOTTLE OP SCH ×3 (07:00→07:24)
[2017-09-06 07:10] VITALS: TEMP 97.9
[2017-09-06] MEDS ORDERED: EPINEPHrine/PF 1 MG/1 ML (1:1,000) AMPULE ONE (07:25)
[2017-09-06] MEDS ORDERED: BUPIVACAINE HCL/PF 0.75% 10 ML VIAL ONE (07:25)
[2017-09-06] MEDS ORDERED: LIDOCAINE HCL/PF 2% SDV 5ML VIAL ONE ×2 (07:26→08:07)
[2017-09-06] MEDS ORDERED: BSS (NA/CA/MG/K) BALANCED SALT SOLUTION OPHTH SOLN 15 ML BOTTLE ONE (07:26)
[2017-09-06] MEDS ORDERED: WATER FOR INJ,STERILE 10 ML ONE (07:26)
[2017-09-06] MEDS ORDERED: VANCOMYCIN 500 MG VIAL (RESTRICTED TO ID ONLY) ONE (07:26)
[2017-09-06] MEDS ORDERED: LIDOCAINE HCL/PF 1% SDV 5ML VIAL ONE (07:26)
[2017-09-06] MEDS ORDERED: TETRACAINE 0.5% OPHTH SOLN 2 ML BOTTLE ONE (07:26)
[2017-09-06] MEDS ORDERED: POVIDONE-IODINE 5% OPHTHALMIC PREP 30 ML SOLUTION ONE (07:27)
[2017-09-06] MEDS ORDERED: PHENYLEPHRINE/KETOROLAC 4 ML VIAL IO ONE ×2 (07:45→08:26)
[2017-09-06] MEDS ORDERED: PROPOFOL 20 ML ONE (08:07)
[2017-09-06] MEDS ORDERED: MIDAZOLAM HCL 2 MG/2 ML SINGLE DOSE VIAL ONE (08:07)
[2017-09-06] MEDS ORDERED: BUPIVACAINE HCL/PF 0.75% 10 ML VIAL PNB ONE ×2 (08:12→08:13)
[2017-09-06] MEDS ORDERED: LIDOCAINE HCL/PF 2% SDV 5ML VIAL PNB ONE (08:12)
[2017-09-06] MEDS ORDERED: LIDOCAINE HCL/PF 2% SDV 5ML VIAL INF ONE (08:13)
[2017-09-06] MEDS ORDERED: CHONDROITIN SU A/HYALUR SOD 1 KIT IO ONE (08:14)
[2017-09-06] MEDS ORDERED: LIDOCAINE HCL 1% PRESERVATIVE FREE - 30ML VIAL PNB ONE (08:23)
--- NOTE | 2017-09-06 09:05 | SPEC ---
DATE OF OPERATION: 09/06/2017 OPERATION: Phacoemulsification with posterior chamber intraocular lens implantation, right eye, lens used [id number], 16.0 Diopter, Serial No.[id number] PREOPERATIVE DIAGNOSIS: Cataract right eye. POSTOPERATIVE DIAGNOSIS: Cataract right eye. SURGEON: Juan Thakur M.D. ANESTHESIA: Peribulbar/Modified Van Lint/MAC. COMPLICATIONS: None. PROCEDURE: The patient was brought to the operating room and correctly identified along with the operative site and a correct intraocular lens romero. The patient was then given a peribulbar block under sedation with 5 mL of a 1:1 mixture of 2% Lidocaine and 0.5% Bupivacaine. Two to 3 mL of the same mixture was given as a modified Van Lint block. The eye was then prepped and draped in the usual sterile fashion including 5% Betadine solution in the conjunctival sac and an eyelid drape. An eyelid speculum was then placed into the eye. A paracentesis port was created. Viscoelastic was injected to inflate the anterior chamber. A temporal clear corneal wound was created. A continuous circular capsulorrhexis was performed. The nucleus was then hydro-dissected and removed phacoemulsification via the [id number] approach. The remaining cortical material was irrigated and aspirated from the eye. Viscoelastic was injected to inflate the capsular bag. The lens was injected into the capsular bag. Viscoelastic was then irrigated and aspirated from the eye. The intraocular lens was noted to be well centered and covered by the anterior capsular border. All wounds were found to be watertight. Topical Vancomycin was given. The eye patch and shield were placed. The patient was discharged from the operating room in stable condition. Jm [id number]
[2017-09-06 09:35] VITALS: BP 115/55; PULSE 55
== END 2017-09-06 09:38 | disposition home or self-care (01) ==
LOC: JASU-SURG 06:24
PROVIDERS: ATTEND Ophthalmology
PROC: 08RJ3JZ Replacement of Right Lens with Synthetic Substitute, Percutaneous Approach (ICD-10-PCS; principal; 2017-09-06 08:00)
DX: H26.9 Unspecified cataract (principal)
CPT/HCPCS: 82962; C9447

== ENCOUNTER 2020-01-20 19:27 | Inpatient (IN) | payer OTHER, MEDICARE ==
[2020-01-20] MEDS ORDERED: SODIUM CHLORIDE 1,000 ML IV SCH (20:00)
[2020-01-20 20:33] LABS: BASO % 0.7 % (0-2.0); EOS % 3.2 % (0-4.5); HEMATOCRIT 45.9 % (35.4-49); HEMOGLOBIN 15.8 GM/dL (11.7-16.9); LYMPH % 22.1 % (8-40); MCH 31.7 pg (25.7-33.7); MCHC 34.4 g/dl (32.0-35.9); MEAN CELL VOLUME 92.3 fl (80-96); MEAN PLT VOLUME 7.8 fl (7.5-11.1); MONO % 9.9 % (3.8-10.2); NEUT % 64.1 % (42.8-82.8); PLATELET COUNT 226 K/MM3 (134-434); RBC 4.98 M/mm3 (4.00-5.60); RDW 14.2 % (11.9-15.9); WHITE BLOOD COUNT 8.2 K/mm3 (4.0-10.0)
[2020-01-20 20:42] LABS: INR 0.97 (0.83-1.09); PROTHROMBIN TIME (PATIENT) 11.9 SEC (9.7-13.0)
[2020-01-20 20:44] LABS: ACTIVATED PTT 31.5 SECONDS (25.2-36.5)
[2020-01-20 21:03] LABS: CHOLESTEROL 138 mg/dL (50-200); TRIGLYCERIDES 512 mg/dL (0-150)
[2020-01-20 21:04] LABS: CHLORIDE 99 mmol/L (98-107); LDL CHOLESTEROL (ONLY SJRH) 66 mg/dL (5-100); POTASSIUM 4.2 mmol/L (3.5-5.1); SODIUM 136 mmol/L (136-145)
[2020-01-20 21:05] LABS: HDL CHOLESTEROL 38 mg/dL (40-60)
[2020-01-20 21:06] LABS: ALBUMIN 3.8 g/dl (3.4-5.0); ANION GAP 10 MMOL/L (8-16); BLOOD UREA NITROGEN 21.7 mg/dL (7-18); CALCIUM 9.5 mg/dL (8.5-10.1); CO2 27 mmol/L (21-32)
[2020-01-20 21:07] LABS: GLUCOSE,RANDOM 151 mg/dL (74-106)
[2020-01-20] MEDS ORDERED: LABETALOL HCL 5 MG/1 ML (100MG/20 ML VIAL) IVPUSH ONE (21:09)
[2020-01-20 21:10] LABS: CREATININE 0.9 mg/dL (0.55-1.3); SGOT/AST 20 U/L (15-37); SGPT/ALT 33 U/L (13-61)
[2020-01-20 21:11] LABS: BILIRUBIN,TOTAL 0.4 mg/dL (0.2-1); TOT PROT 7.2 g/dl (6.4-8.2)
[2020-01-20 21:12] LABS: ALK PHOS 97 U/L (45-117)
[2020-01-20 22:43] LABS: PH,URINE 6.5 (5.0-8.0); URINE APPEARANCE CLEAR; URINE BILIRUBIN NEGATIVE (NEGATIVE); URINE COLOR YELLOW; URINE GLUCOSE (UA) 3+ (NEGATIVE); URINE KETONE TRACE (NEGATIVE); URINE LEUK ESTERASE NEGATIVE (NEGATIVE); URINE NITRITE NEGATIVE (NEGATIVE); URINE PROTEIN NEGATIVE (NEGATIVE)
[2020-01-21 07:04] LABS: HEMATOCRIT 42.8 % (35.4-49); HEMOGLOBIN 14.2 GM/dL (11.7-16.9); MCH 30.3 pg (25.7-33.7); MCHC 33.1 g/dl (32.0-35.9); MEAN CELL VOLUME 91.7 fl (80-96); MEAN PLT VOLUME 7.6 fl (7.5-11.1); PLATELET COUNT 201 K/MM3 (134-434); RBC 4.67 M/mm3 (4.00-5.60); RDW 14.1 % (11.9-15.9); WHITE BLOOD COUNT 7.9 K/mm3 (4.0-10.0)
[2020-01-21 07:11] LABS: ACTIVATED PTT 31.3 SECONDS (25.2-36.5); POTASSIUM 4.2 mmol/L (3.5-5.1)
[2020-01-21 07:14] LABS: CALCIUM 8.9 mg/dL (8.5-10.1)
[2020-01-21 07:15] LABS: ALBUMIN 3.5 g/dl (3.4-5.0)
[2020-01-21 07:18] LABS: PHOSPHOROUS 3.3 mg/dL (2.5-4.9)
[2020-01-21 07:20] LABS: BILIRUBIN,TOTAL 0.5 mg/dL (0.2-1); TOT PROT 6.7 g/dl (6.4-8.2)
[2020-01-21] MEDS: INSULIN SLIDING SCALE (NOVOLOG) 1 VIAL SQ SCH ×4 (07:25→21:17)
[2020-01-21 08:27] LABS: CREATININE 0.7 mg/dL (0.55-1.3)
[2020-01-21] MEDS: FINASTERIDE 5 MG TABLET (FP) PO SCH (09:06)
[2020-01-21] MEDS: MULTIVITAMINS (DAILY MVI) TABLET (FP) PO SCH (09:06)
[2020-01-21] MEDS: ASCORBIC ACID 500 MG TABLET (FP) PO SCH (09:06)
[2020-01-21] MEDS: CHOLECALCIFEROL (VIT D3) 1,000 UNIT (25 MCG) TABLET PO SCH (09:07)
[2020-01-21] MEDS: PANTOPRAZOLE SODIUM 40 MG VIAL IVPUSH SCH (09:07)
[2020-01-21 09:40] LABS: INR 0.97 (0.83-1.09); PROTHROMBIN TIME (PATIENT) 11.7 SEC (9.7-13.0)
[2020-01-21] MEDS ORDERED: CHOLECALCIFEROL (VIT D3) 1,000 UNIT (25 MCG) TABLET PO SCH (10:00)
[2020-01-21] MEDS: PNEUMOC 13-VAL CONJ-DIP CRM/PF 0.5 ML DISP.SYRIN IM ONE ×2 (16:31→17:29)
[2020-01-21] MEDS: ROSUVASTATIN CA 20 MG TABLET (FP) PO SCH (21:22)
[2020-01-21] MEDS: AMITRIPTYLINE HCL 10 MG TABLET PO SCH (21:22)
[2020-01-22] MEDS: INSULIN SLIDING SCALE (NOVOLOG) 1 VIAL SQ SCH ×4 (06:20→22:07)
[2020-01-22 06:57] LABS: BASO % 0.5 % (0-2.0); EOS % 2.8 % (0-4.5); HEMATOCRIT 44.4 % (35.4-49); HEMOGLOBIN 14.9 GM/dL (11.7-16.9); LYMPH % 24.4 % (8-40); MCH 30.7 pg (25.7-33.7); MCHC 33.4 g/dl (32.0-35.9); MEAN CELL VOLUME 91.9 fl (80-96); MEAN PLT VOLUME 7.8 fl (7.5-11.1); MONO % 9.4 % (3.8-10.2); NEUT % 62.9 % (42.8-82.8); PLATELET COUNT 193 K/MM3 (134-434); RBC 4.84 M/mm3 (4.00-5.60); RDW 14.1 % (11.9-15.9); WHITE BLOOD COUNT 8.2 K/mm3 (4.0-10.0)
[2020-01-22 07:12] LABS: POTASSIUM 4.5 mmol/L (3.5-5.1)
[2020-01-22 07:21] LABS: ALBUMIN 3.5 g/dl (3.4-5.0)
[2020-01-22 07:23] LABS: BLOOD UREA NITROGEN 15.4 mg/dL (7-18); MAGNESIUM 2.2 mg/dL (1.8-2.4)
[2020-01-22 07:24] LABS: CREATININE 0.8 mg/dL (0.55-1.3)
[2020-01-22 07:26] LABS: BILIRUBIN,TOTAL 0.6 mg/dL (0.2-1); TOT PROT 6.6 g/dl (6.4-8.2)
[2020-01-22] MEDS: CHOLECALCIFEROL (VIT D3) 1,000 UNIT (25 MCG) TABLET PO SCH (09:20)
[2020-01-22] MEDS: ASCORBIC ACID 500 MG TABLET (FP) PO SCH (09:20)
[2020-01-22] MEDS: PANTOPRAZOLE SODIUM 40 MG VIAL IVPUSH SCH (09:20)
[2020-01-22] MEDS: MULTIVITAMINS (DAILY MVI) TABLET (FP) PO SCH (09:20)
[2020-01-22] MEDS: FINASTERIDE 5 MG TABLET (FP) PO SCH (09:20)
[2020-01-22] MEDS ORDERED: INSULIN (LEVEMIR) 100 UNITS/ML UNITS SQ ONE (10:53)
[2020-01-22 15:41] VITALS: BMI 24.3
[2020-01-22] MEDS ORDERED: LABETALOL HCL 5 MG/1 ML (100MG/20 ML VIAL) IVPUSH ONE (22:05)
[2020-01-22] MEDS: ROSUVASTATIN CA 20 MG TABLET (FP) PO SCH (22:08)
[2020-01-22] MEDS: AMITRIPTYLINE HCL 10 MG TABLET PO SCH (23:12)
[2020-01-23] MEDS: INSULIN SLIDING SCALE (NOVOLOG) 1 VIAL SQ SCH ×4 (06:33→22:29)
[2020-01-23 06:38] LABS: BASO % 0.2 % (0-2.0); EOS % 1.6 % (0-4.5); HEMATOCRIT 44.5 % (35.4-49); HEMOGLOBIN 14.4 GM/dL (11.7-16.9); LYMPH % 15.8 % (8-40); MCH 30.1 pg (25.7-33.7); MCHC 32.5 g/dl (32.0-35.9); MEAN CELL VOLUME 92.6 fl (80-96); MEAN PLT VOLUME 7.7 fl (7.5-11.1); NEUT % 68.4 % (42.8-82.8); PLATELET COUNT 192 K/MM3 (134-434); RDW 14.2 % (11.9-15.9); WHITE BLOOD COUNT 10.8 K/mm3 (4.0-10.0)
[2020-01-23 07:09] LABS: ALBUMIN 3.4 g/dl (3.4-5.0); BLOOD UREA NITROGEN 13.5 mg/dL (7-18)
[2020-01-23 07:12] LABS: CREATININE 0.7 mg/dL (0.55-1.3); PHOSPHOROUS 2.7 mg/dL (2.5-4.9)
[2020-01-23 07:14] LABS: BILIRUBIN,TOTAL 0.6 mg/dL (0.2-1); TOT PROT 6.5 g/dl (6.4-8.2)
[2020-01-23] MEDS: PANTOPRAZOLE SODIUM 40 MG VIAL IVPUSH SCH (09:57)
[2020-01-23] MEDS: MULTIVITAMINS (DAILY MVI) TABLET (FP) PO SCH (09:57)
[2020-01-23] MEDS: FINASTERIDE 5 MG TABLET (FP) PO SCH (09:57)
[2020-01-23] MEDS: ASCORBIC ACID 500 MG TABLET (FP) PO SCH (09:58)
[2020-01-23] MEDS: CHOLECALCIFEROL (VIT D3) 1,000 UNIT (25 MCG) TABLET PO SCH (09:58)
[2020-01-23] MEDS ORDERED: INSULIN (NOVOLOG) ASPART 100 UNITS/ML 10ML VIAL ONE (17:45)
[2020-01-23] MEDS: ROSUVASTATIN CA 20 MG TABLET (FP) PO SCH (22:29)
[2020-01-23] MEDS: AMITRIPTYLINE HCL 10 MG TABLET PO SCH (22:29)
[2020-01-24 07:14] LABS: HEMATOCRIT 44.8 % (35.4-49); MCH 30.7 pg (25.7-33.7); MCHC 33.5 g/dl (32.0-35.9); MEAN CELL VOLUME 91.6 fl (80-96); PLATELET COUNT 176 K/MM3 (134-434); WHITE BLOOD COUNT 8.4 K/mm3 (4.0-10.0)
[2020-01-24 07:17] LABS: INR 1.06 (0.83-1.09); PROTHROMBIN TIME (PATIENT) 12.8 SEC (9.7-13.0)
[2020-01-24 07:27] LABS: POTASSIUM 4.1 mmol/L (3.5-5.1)
[2020-01-24 07:35] LABS: ALBUMIN 3.3 g/dl (3.4-5.0); BLOOD UREA NITROGEN 11.1 mg/dL (7-18); CALCIUM 8.5 mg/dL (8.5-10.1)
[2020-01-24 07:39] LABS: CREATININE 0.8 mg/dL (0.55-1.3)
[2020-01-24 07:40] LABS: BILIRUBIN,TOTAL 0.7 mg/dL (0.2-1); TOT PROT 6.8 g/dl (6.4-8.2)
[2020-01-24] MEDS: MULTIVITAMINS (DAILY MVI) TABLET (FP) PO SCH (09:12)
[2020-01-24] MEDS: LIDOCAINE 5% TOPICAL PATCH TP SCH (09:12)
[2020-01-24] MEDS: ATENOLOL 25 MG TABLET (FP) PO SCH ×2 (09:13→22:12)
[2020-01-24] MEDS: ASCORBIC ACID 500 MG TABLET (FP) PO SCH (09:13)
[2020-01-24] MEDS: CHOLECALCIFEROL (VIT D3) 1,000 UNIT (25 MCG) TABLET PO SCH (09:13)
[2020-01-24] MEDS: FINASTERIDE 5 MG TABLET (FP) PO SCH (09:13)
[2020-01-24] MEDS: PANTOPRAZOLE SODIUM 40 MG VIAL IVPUSH SCH (09:13)
[2020-01-24] MEDS: ACETAMINOPHEN 325 MG TABLET (FP) PO PRN ×2 (09:15→22:12)
[2020-01-24] MEDS: INSULIN SLIDING SCALE (NOVOLOG) 1 VIAL SQ SCH ×3 (11:36→22:13)
[2020-01-24] MEDS ORDERED: PT OWN MED DRAWER 7, Y5N ONE (22:09)
[2020-01-24] MEDS: LIDOCAINE PATCH REMOVAL MC SCH (22:12)
[2020-01-24] MEDS: ROSUVASTATIN CA 20 MG TABLET (FP) PO SCH (22:12)
[2020-01-24] MEDS: AMITRIPTYLINE HCL 10 MG TABLET PO SCH (22:12)
[2020-01-25] MEDS: ACETAMINOPHEN 325 MG TABLET (FP) PO PRN ×3 (06:28→20:00)
[2020-01-25] MEDS: INSULIN SLIDING SCALE (NOVOLOG) 1 VIAL SQ SCH ×4 (06:28→23:09)
[2020-01-25] MEDS ORDERED: traMADol HCL 50 MG TABLET PO PRN (08:29)
[2020-01-25] MEDS: FINASTERIDE 5 MG TABLET (FP) PO SCH (09:48)
[2020-01-25] MEDS: LIDOCAINE 5% TOPICAL PATCH TP SCH (09:48)
[2020-01-25] MEDS: MULTIVITAMINS (DAILY MVI) TABLET (FP) PO SCH (09:48)
[2020-01-25] MEDS: CHOLECALCIFEROL (VIT D3) 1,000 UNIT (25 MCG) TABLET PO SCH (09:49)
[2020-01-25] MEDS: ASCORBIC ACID 500 MG TABLET (FP) PO SCH (09:49)
[2020-01-25] MEDS: PANTOPRAZOLE SODIUM 40 MG VIAL IVPUSH SCH (09:49)
[2020-01-25] MEDS: ATENOLOL 25 MG TABLET (FP) PO SCH ×2 (09:49→23:09)
[2020-01-25] MEDS ORDERED: PT OWN MED DRAWER 7, Y5N ONE (22:58)
[2020-01-25] MEDS: ROSUVASTATIN CA 20 MG TABLET (FP) PO SCH (23:09)
[2020-01-25] MEDS: LIDOCAINE PATCH REMOVAL MC SCH (23:10)
[2020-01-25] MEDS: AMITRIPTYLINE HCL 10 MG TABLET PO SCH (23:10)
[2020-01-26] MEDS: INSULIN SLIDING SCALE (NOVOLOG) 1 VIAL SQ SCH ×4 (07:39→22:05)
[2020-01-26] MEDS: ATENOLOL 25 MG TABLET (FP) PO SCH ×2 (10:16→22:07)
[2020-01-26] MEDS: MULTIVITAMINS (DAILY MVI) TABLET (FP) PO SCH (10:16)
[2020-01-26] MEDS: FINASTERIDE 5 MG TABLET (FP) PO SCH (10:16)
[2020-01-26] MEDS: PANTOPRAZOLE SODIUM 40 MG VIAL IVPUSH SCH (10:18)
[2020-01-26] MEDS: ASCORBIC ACID 500 MG TABLET (FP) PO SCH (10:19)
[2020-01-26] MEDS: LIDOCAINE 5% TOPICAL PATCH TP SCH (10:19)
[2020-01-26] MEDS: CHOLECALCIFEROL (VIT D3) 1,000 UNIT (25 MCG) TABLET PO SCH (10:20)
[2020-01-26] MEDS ORDERED: PT OWN MED DRAWER 7, Y5N ONE (21:57)
[2020-01-26] MEDS: ROSUVASTATIN CA 20 MG TABLET (FP) PO SCH (22:07)
[2020-01-26] MEDS: ACETAMINOPHEN 325 MG TABLET (FP) PO PRN (22:07)
[2020-01-26] MEDS: LIDOCAINE PATCH REMOVAL MC SCH (22:07)
[2020-01-26] MEDS: AMITRIPTYLINE HCL 10 MG TABLET PO SCH (22:07)
[2020-01-27] MEDS: INSULIN SLIDING SCALE (NOVOLOG) 1 VIAL SQ SCH ×4 (06:50→21:31)
[2020-01-27 06:56] LABS: HEMOGLOBIN 14.6 GM/dL (11.7-16.9); MCH 30.4 pg (25.7-33.7); MCHC 33.3 g/dl (32.0-35.9); MEAN CELL VOLUME 91.5 fl (80-96); MEAN PLT VOLUME 7.6 fl (7.5-11.1); PLATELET COUNT 201 K/MM3 (134-434); RDW 13.8 % (11.9-15.9); WHITE BLOOD COUNT 5.7 K/mm3 (4.0-10.0)
[2020-01-27 07:03] LABS: INR 1.02 (0.83-1.09); PROTHROMBIN TIME (PATIENT) 12.5 SEC (9.7-13.0)
[2020-01-27 07:11] LABS: POTASSIUM 4.4 mmol/L (3.5-5.1)
[2020-01-27 07:15] LABS: ALBUMIN 3.2 g/dl (3.4-5.0); BLOOD UREA NITROGEN 11.6 mg/dL (7-18); CALCIUM 9.1 mg/dL (8.5-10.1)
[2020-01-27 07:18] LABS: CREATININE 0.9 mg/dL (0.55-1.3)
[2020-01-27 07:20] LABS: BILIRUBIN,TOTAL 0.4 mg/dL (0.2-1); TOT PROT 6.7 g/dl (6.4-8.2)
[2020-01-27] MEDS ORDERED: PT OWN MED DRAWER 7, Y5N ONE ×3 (09:39→20:35)
[2020-01-27] MEDS: ATENOLOL 25 MG TABLET (FP) PO SCH ×2 (09:49→21:32)
[2020-01-27] MEDS: LIDOCAINE 5% TOPICAL PATCH TP SCH ×2 (11:25→16:22)
[2020-01-27] MEDS: PANTOPRAZOLE 40 MG TABLET PO SCH (11:25)
[2020-01-27] MEDS: ASCORBIC ACID 500 MG TABLET (FP) PO SCH (11:25)
[2020-01-27] MEDS: MULTIVITAMINS (DAILY MVI) TABLET (FP) PO SCH (11:25)
[2020-01-27] MEDS: FINASTERIDE 5 MG TABLET (FP) PO SCH (11:25)
[2020-01-27] MEDS: CHOLECALCIFEROL (VIT D3) 1,000 UNIT (25 MCG) TABLET PO SCH (11:26)
[2020-01-27] MEDS ORDERED: INSULIN (NOVOLOG) ASPART 100 UNITS/ML 10ML VIAL ONE (16:15)
[2020-01-27] MEDS: ACETAMINOPHEN 325 MG TABLET (FP) PO PRN (16:22)
[2020-01-27] MEDS: ROSUVASTATIN CA 20 MG TABLET (FP) PO SCH (21:32)
[2020-01-27] MEDS: AMITRIPTYLINE HCL 10 MG TABLET PO SCH (21:32)
[2020-01-28] MEDS: LIDOCAINE PATCH REMOVAL MC SCH ×2 (06:08→22:03)
[2020-01-28] MEDS: INSULIN SLIDING SCALE (NOVOLOG) 1 VIAL SQ SCH ×4 (06:36→22:02)
[2020-01-28] MEDS: ATENOLOL 25 MG TABLET (FP) PO SCH ×2 (09:00→22:03)
[2020-01-28] MEDS: ASCORBIC ACID 500 MG TABLET (FP) PO SCH (09:02)
[2020-01-28] MEDS: CHOLECALCIFEROL (VIT D3) 1,000 UNIT (25 MCG) TABLET PO SCH (09:02)
[2020-01-28] MEDS: MULTIVITAMINS (DAILY MVI) TABLET (FP) PO SCH (09:02)
[2020-01-28] MEDS: PANTOPRAZOLE 40 MG TABLET PO SCH (09:02)
[2020-01-28] MEDS: FINASTERIDE 5 MG TABLET (FP) PO SCH (09:02)
[2020-01-28] MEDS: LIDOCAINE 5% TOPICAL PATCH TP SCH (09:02)
[2020-01-28] MEDS ORDERED: LIDOCAINE 1%/EPI 1:100000 (50 ML MULTI DOSE VIAL) ONE (10:02)
[2020-01-28] MEDS ORDERED: THROMBIN (BOVINE) 5,000 UNIT VIAL TP ONE ×3 (10:02→12:31)
[2020-01-28] MEDS ORDERED: GENTAMICIN SO4 80 MG/2 ML VIAL ONE (10:02)
[2020-01-28] MEDS ORDERED: DEXAMETHASONE SOD PHOSPHATE 4 MG/1 ML VIAL ONE (10:35)
[2020-01-28] MEDS ORDERED: MIDAZOLAM HCL 2 MG/2 ML SINGLE DOSE VIAL ONE (10:35)
[2020-01-28] MEDS ORDERED: fentaNYL CITRATE 250 MCG/5 ML VIAL ONE (10:35)
[2020-01-28] MEDS ORDERED: ONDANSETRON 4 MG/2 ML VIAL ONE (10:35)
[2020-01-28] MEDS ORDERED: ROCURONIUM BROMIDE 50 MG/5 ML SYRINGE ONE (10:35)
[2020-01-28] MEDS ORDERED: PROPOFOL 20 ML ONE (10:35)
[2020-01-28] MEDS ORDERED: METOPROLOL TARTRATE 5 MG/5 ML VIAL ONE (10:52)
[2020-01-28] MEDS ORDERED: LIDOCAINE 1%/EPI 1:100000 (50 ML MULTI DOSE VIAL) INF ONE (11:24)
[2020-01-28] MEDS ORDERED: VANCOMYCIN 1,000 MG VIAL (RESTRICTED TO ID ONLY) IVPB ONE (11:40)
[2020-01-28] MEDS ORDERED: ceFAZolin SODIUM 1 GM VIAL IVPB ONE ×2 (12:00→19:42)
[2020-01-28] MEDS ORDERED: ceFAZolin SODIUM 1 GM VIAL ONE ×3 (12:14→23:12)
[2020-01-28] MEDS ORDERED: VANCOMYCIN 1,000 MG VIAL (RESTRICTED TO ID ONLY) ONE (12:14)
[2020-01-28] MEDS ORDERED: BACITRACIN 50,000 UNITS VIAL TP ONE (12:32)
[2020-01-28] MEDS ORDERED: GENTAMICIN SO4 80 MG/2 ML VIAL IVPB ONE (12:32)
[2020-01-28] MEDS ORDERED: HYDROGEN PEROXIDE 473 ML PO ONE (12:32)
[2020-01-28] MEDS ORDERED: ONDANSETRON 4 MG/2 ML VIAL IVPUSH PRN ×3 (12:49→14:02)
[2020-01-28] MEDS ORDERED: NEOSTIGMINE METHYLSULFATE 0.5 MG/ML - 10 ML MDV ONE (12:50)
[2020-01-28] MEDS ORDERED: GLYCOPYRROLATE 0.2 MG/1 ML VIAL ONE (12:51)
[2020-01-28] MEDS ORDERED: LACTATED RINGERS SOLUTION 1,000 ML IV SCH (13:00)
[2020-01-28] MEDS ORDERED: ACETAMINOPHEN INJECTION 100 ML IVPB ONE (18:04)
[2020-01-28] MEDS ORDERED: ACETAMINOPHEN 1000 MG/100 ML VIAL (NON FORMULARY) IVPB ONE (18:10)
[2020-01-28] MEDS ORDERED: oxyCODONE HCL 5 MG TABLET PO ONE (19:00)
[2020-01-28] MEDS ORDERED: oxyCODONE HCL 5 MG TABLET ONE (19:17)
[2020-01-28] MEDS ORDERED: oxyCODONE HCL 5 MG TABLET PO PRN (19:18)
[2020-01-28] MEDS ORDERED: BENZOCAINE/MENTH/CETYLPYRD CL 1 EACH LOZENGE MM PRN (21:53)
[2020-01-28] MEDS ORDERED: LIDOCAINE PATCH REMOVAL MC SCH (22:00)
[2020-01-28] MEDS ORDERED: CHLORHEXIDINE GLUCONATE 4% CLEANSER FOR DECOLONIZATION TP SCH (22:00)
[2020-01-28] MEDS ORDERED: MUPIROCIN 2% TOPICAL OINTMENT FOR DECOLONIZATION NS SCH (22:00)
[2020-01-28] MEDS: CEFAZOLIN 1 GM in DEXTROSE 5%-WATER - 50 ML IVPB SCH (22:01)
[2020-01-28] MEDS: DOCUSATE SODIUM 100 MG CAPSULE (FP) PO SCH ×2 (22:02)
[2020-01-28] MEDS: ACETAMINOPHEN 1000 MG/100 ML VIAL (NON FORMULARY) IVPB SCH (22:02)
[2020-01-28] MEDS: ROSUVASTATIN CA 20 MG TABLET (FP) PO SCH (22:03)
[2020-01-28] MEDS ORDERED: PT OWN MED DRAWER 7, Y5N ONE (22:39)
[2020-01-28] MEDS: oxyCODONE HCL 5 MG TABLET PO PRN (22:57)
[2020-01-28] MEDS: AMITRIPTYLINE HCL 10 MG TABLET PO SCH (23:07)
[2020-01-28] MEDS ORDERED: DEXTROSE 5%-WATER - 50 ML IVPB ONE (23:12)
[2020-01-28] MEDS ORDERED: MORPHINE SULFATE 2 MG/ML VIAL IVPUSH ONE (23:45)
[2020-01-28] MEDS ORDERED: MORPHINE SULFATE 2 MG/ML VIAL ONE (23:49)
[2020-01-29] MEDS: ACETAMINOPHEN 1000 MG/100 ML VIAL (NON FORMULARY) IVPB SCH ×2 (04:30→09:00)
[2020-01-29] MEDS: CEFAZOLIN 1 GM in DEXTROSE 5%-WATER - 50 ML IVPB SCH ×2 (05:00→12:12)
[2020-01-29] MEDS: DOCUSATE SODIUM 100 MG CAPSULE (FP) PO SCH ×3 (05:00→21:00)
[2020-01-29] MEDS: oxyCODONE HCL 5 MG TABLET PO PRN (05:00)
[2020-01-29] MEDS: INSULIN SLIDING SCALE (NOVOLOG) 1 VIAL SQ SCH ×4 (06:42→21:42)
[2020-01-29 06:51] LABS: HEMOGLOBIN 14.4 GM/dL (11.7-16.9); MCH 30.1 pg (25.7-33.7); MCHC 33.5 g/dl (32.0-35.9); MEAN PLT VOLUME 7.8 fl (7.5-11.1); PLATELET COUNT 235 K/MM3 (134-434); RBC 4.78 M/mm3 (4.00-5.60); RDW 13.6 % (11.9-15.9); WHITE BLOOD COUNT 11.7 K/mm3 (4.0-10.0)
[2020-01-29 07:43] LABS: POTASSIUM 4.5 mmol/L (3.5-5.1)
[2020-01-29 08:00] LABS: ALBUMIN 2.8 g/dl (3.4-5.0)
[2020-01-29 08:01] LABS: BILIRUBIN,TOTAL 1.1 mg/dL (0.2-1); CALCIUM 8.8 mg/dL (8.5-10.1)
[2020-01-29 08:02] LABS: BLOOD UREA NITROGEN 15.8 mg/dL (7-18); CREATININE 0.8 mg/dL (0.55-1.3)
[2020-01-29 08:04] LABS: TOT PROT 6.1 g/dl (6.4-8.2)
[2020-01-29] MEDS: MULTIVITAMINS (DAILY MVI) TABLET (FP) PO SCH (09:24)
[2020-01-29] MEDS: PANTOPRAZOLE 40 MG TABLET PO SCH (09:24)
[2020-01-29] MEDS: ATENOLOL 25 MG TABLET (FP) PO SCH ×3 (09:25→21:26)
[2020-01-29] MEDS: ASCORBIC ACID 500 MG TABLET (FP) PO SCH (09:25)
[2020-01-29] MEDS: FINASTERIDE 5 MG TABLET (FP) PO SCH (09:25)
[2020-01-29] MEDS ORDERED: LIDOCAINE 5% TOPICAL PATCH TP SCH (10:00)
[2020-01-29] MEDS: CHOLECALCIFEROL (VIT D3) 1,000 UNIT (25 MCG) TABLET PO SCH (10:30)
[2020-01-29] MEDS ORDERED: DEXTROSE 5%-WATER - 50 ML IVPB ONE (12:08)
[2020-01-29] MEDS ORDERED: ceFAZolin SODIUM 1 GM VIAL ONE (12:08)
[2020-01-29] MEDS ORDERED: PT OWN MED DRAWER 7, Y5N ONE ×2 (17:52→20:12)
[2020-01-29] MEDS ORDERED: ACETAMINOPHEN 325 MG TABLET (FP) PO PRN (20:29)
[2020-01-29] MEDS ORDERED: amLODIPine BESYLATE 10 MG TABLET (FP) PO ONE (20:49)
[2020-01-29] MEDS: AMITRIPTYLINE HCL 10 MG TABLET PO SCH (21:00)
[2020-01-29] MEDS: ROSUVASTATIN CA 20 MG TABLET (FP) PO SCH (21:00)
[2020-01-29] MEDS: LIDOCAINE PATCH REMOVAL MC SCH (21:34)
[2020-01-30 06:21] VITALS: TEMP 98
[2020-01-30] MEDS: INSULIN SLIDING SCALE (NOVOLOG) 1 VIAL SQ SCH (06:22)
[2020-01-30] MEDS: DOCUSATE SODIUM 100 MG CAPSULE (FP) PO SCH (06:22)
[2020-01-30 07:15] LABS: BASO % 0.5 % (0-2.0); EOS % 3.8 % (0-4.5); HEMATOCRIT 43.9 % (35.4-49); HEMOGLOBIN 14.6 GM/dL (11.7-16.9); LYMPH % 25.8 % (8-40); MCH 30.2 pg (25.7-33.7); MCHC 33.4 g/dl (32.0-35.9); MEAN CELL VOLUME 90.3 fl (80-96); MONO % 8.8 % (3.8-10.2); NEUT % 61.1 % (42.8-82.8); PLATELET COUNT 239 K/MM3 (134-434); RBC 4.86 M/mm3 (4.00-5.60); RDW 13.3 % (11.9-15.9); WHITE BLOOD COUNT 9.9 K/mm3 (4.0-10.0)
[2020-01-30 07:24] LABS: POTASSIUM 4.1 mmol/L (3.5-5.1)
[2020-01-30 07:31] LABS: CALCIUM 8.7 mg/dL (8.5-10.1)
[2020-01-30 07:32] LABS: BLOOD UREA NITROGEN 11.1 mg/dL (7-18)
[2020-01-30 07:35] LABS: CREATININE 0.8 mg/dL (0.55-1.3)
[2020-01-30 07:36] LABS: BILIRUBIN,TOTAL 0.8 mg/dL (0.2-1); TOT PROT 6.5 g/dl (6.4-8.2)
[2020-01-30] MEDS ORDERED: amLODIPine BESYLATE 10 MG TABLET (FP) PO SCH (10:00)
[2020-01-30] MEDS: FINASTERIDE 5 MG TABLET (FP) PO SCH (10:10)
[2020-01-30] MEDS: PANTOPRAZOLE 40 MG TABLET PO SCH (10:10)
[2020-01-30] MEDS: ASCORBIC ACID 500 MG TABLET (FP) PO SCH (10:10)
[2020-01-30] MEDS: MULTIVITAMINS (DAILY MVI) TABLET (FP) PO SCH (10:11)
[2020-01-30] MEDS: CHOLECALCIFEROL (VIT D3) 1,000 UNIT (25 MCG) TABLET PO SCH (10:12)
[2020-01-30] MEDS: ATENOLOL 25 MG TABLET (FP) PO SCH (10:28)
[2020-01-30 13:11] VITALS: BP 154/82; PULSE 84
== END 2020-01-30 12:33 | disposition home health service (06) | DRG 25 ==
LOC: JER 19:27 → JERBED 21:30 → JICU 01-21 01:03 → J4W 01-22 15:30 → JICU 01-28 21:37
PROVIDERS: ADMIT Internal Medicine Pulmonary Disease; ATTEND Family Medicine
PROC: 0W310ZZ Control Bleeding in Cranial Cavity, Open Approach (ICD-10-PCS; 2020-01-28)
PROC: 00N00ZZ Release Brain, Open Approach (ICD-10-PCS; 2020-01-28)
PROC: 00970ZZ Drainage of Cerebral Hemisphere, Open Approach (ICD-10-PCS; principal; 2020-01-28 11:00)
DX: S06.5X0A Traumatic subdural hemorrhage without loss of consciousness, initial encounter (principal); G93.5 Compression of brain; I10 Essential (primary) hypertension; E78.5 Hyperlipidemia, unspecified; I25.10 Atherosclerotic heart disease of native coronary artery without angina pectoris; E11.9 Type 2 diabetes mellitus without complications; N40.0 Benign prostatic hyperplasia without lower urinary tract symptoms; I44.0 Atrioventricular block, first degree; I69.220 Aphasia following other nontraumatic intracranial hemorrhage; G93.89 Other specified disorders of brain; Z95.1 Presence of aortocoronary bypass graft; Z95.5 Presence of coronary angioplasty implant and graft; W19.XXXA Unspecified fall, initial encounter; Y93.9 Activity, unspecified; Y92.89 Other specified places as the place of occurrence of the external cause; Y99.9 Unspecified external cause status; I73.9 Peripheral vascular disease, unspecified
CPT/HCPCS: 36415; 70450-TC; 71045-TC-FY; 72125-TC; 80048; 80053; 80061; 81003; 82550; 82962; 83036; 83721; 83735; 84100; 84484; 85025; 85027; 85610; 85730; 86850; 86900; 86901; 90670; 93005; 93010; 93306-TC; 94010; 94760; 97116-GP; 97161-GP; 99291; 99292; C9803; J0131; U0003